=== PATIENT | female | born 1955 | race Caucasian/White ===

== ENCOUNTER 2023-02-14 09:44 | Outpatient (CLI) | payer MEDICARE, OTHER, SELFPAY ==
[2023-02-14 10:00] VITALS: BP 97/68; PULSE 77; RESP 18; TEMP 36.6; O2SAT 100
== END 2023-02-14 10:20 | disposition home or self-care (01) ==
LOC: INF 09:45
PROVIDERS: PCP Internal Medicine; Visit Provider Internal Medicine
DX: M81.0 Age-related osteoporosis without current pathological fracture (principal); Z76.89 Persons encountering health services in other specified circumstances
CPT/HCPCS: 96372; J0897

== ENCOUNTER → 2023-03-03 10:45 | Outpatient (POV) | payer MEDICARE, OTHER, SELFPAY ==
--- NOTE | 2023-03-03 11:04 | EXP.PAIN.OV ---
HPI Data of Consult Patient: new to practice Consult date: 03/03/23 Requesting Physician: Jessica Fitzgerald APRN Primary Care Provider: Jorge Hanson DO Consult Narrative Reason for consult: Neck pain, low back pain, knee pain History of present illness: Ms. Galloway is a 67 year old female who presents today as a new patient. She is a referral from Dr. Ureña's office. Today she rates her pain a 8 out of 10. Patient states her pain is at multiple locations including her neck with radiating symptoms into her arms and back with symptoms into her hips and legs. Patient does describe this as an aching, throbbing sensation with some numbness and tingling into her feet. Patient does state that she is establishing care with providers that she just recently moved from [place] to [place]. She states that while she was in [place] she did have a pain management provider and that they did injections that provided significant improvement. She states her last injection was in her low back however this 1 did not do as well. She does state today that her right hand and bilateral hips are causing her more pain currently. Patient does state the pain interferes with her ability to perform activities of daily living such as cooking and cleaning. She does state that she has also gotten gel injections in her knees that did provide significant improvement. Patient has been to see a neurosurgeon in the past and was told that she is a nonoperative candidate. Patient is prescribed gabapentin 400 mg 3 times a day. Patient denies any side effects from this medication. Patient does have a history of seizure disorder and colitis. Her Negro has been reviewed and is appropriate. CC: Jessica Fitzgerald APRN [facility] Disclaimer: The information contained in this section may have been updated after the patient was seen, as this information can be updated by other users. Medical History (Updated 03/03/23 @ 12:13 by Jessica Fitzgerald APRN) Colitis HLD (hyperlipidemia) Osteoporosis Seizure disorder Surgical History H/O: hysterectomy Hx of cataract surgery Hx of left knee surgery Family History (Updated 03/03/23 @ 11:55 by Margoth Hendrickson RN) Other CHF (congestive heart failure) Cancer Social History (Updated 02/14/23 @ 10:49 by Lawson Dumas, RN) Smoking Status: Never smoker alcohol intake: current substance use type: denies use current occupational status: retired Travel in the last 8 weeks: None Review of Systems Review of Systems Review of systems:: pertinent systems reviewed and negative unless documented below Review of systems (narrative): Review of Systems: General: No recent weight changes, no fever, no sleep disturbances Respiratory: No cough, no shortness of air, no recurring pulmonary infections Cardiovascular/peripheral vascular: No chest pain, no palpitations, no edema, no shortness of breath Gastrointestinal: No new onset incontinence, normal bowel movements reported Genitourinary: No new onset incontinence Musculoskeletal: Neck pain, arm pain, low back pain, leg pain, knee pain, hip pain Psychiatric: [Normal mood/affect] Neurological: [Denies weakness in extremities], [denies balance issues] Meds Home Medications and Allergies Home Medications Medication Instructions Recorded Confirmed Type budesonide 3 mg 9 mg PO DAILY ibs 02/09/23 03/03/23 History capsule,delayed,extended release denosumab 60 mg/mL subcutaneous 60 mg SQ [id number] osteoporosis 02/09/23 03/03/23 History syringe (Prolia) gabapentin 400 mg capsule 400 mg PO TID nerve pain 02/09/23 03/03/23 History levetiracetam 500 mg tablet 1,000 mg PO DAILY seizures 02/09/23 03/03/23 History rosuvastatin 20 mg tablet 20 mg PO DAILY High Cholesterol 02/09/23 03/03/23 History trazodone 50 mg tablet 50 mg PO HS Insomnia 02/09/23 03/03/23 History New Prescriptions to Start Prescriptions: Allergies All
[2023-03-03 11:53] VITALS: BP 149/59; PULSE 74; RESP 18; O2SAT 99; BMI 19.5
== END ==
PROVIDERS: PCP Internal Medicine; Visit Provider Nurse Practitioner Family
DX: M54.12 Radiculopathy, cervical region; M54.50 Low back pain, unspecified; G89.29 Other chronic pain; M54.16 Radiculopathy, lumbar region; M25.561 Pain in right knee; M25.562 Pain in left knee; M70.61 Trochanteric bursitis, right hip; M70.62 Trochanteric bursitis, left hip
CPT/HCPCS: 99202; G0463

== ENCOUNTER 2023-03-15 08:17 | Day surgery (SDC) | payer MEDICARE, OTHER, SELFPAY ==
[2023-03-15 08:25] VITALS: BP 87/58; PULSE 81; RESP 18; TEMP 36.2; O2SAT 98; BMI 18.6
[2023-03-15 08:45] VITALS: BP 95/46; PULSE 87; RESP 18; O2SAT 97
[2023-03-15 08:48] VITALS: BP 95/46; PULSE 87; RESP 18; O2SAT 97
[2023-03-15 08:50] VITALS: BP 96/69; PULSE 78; RESP 18; O2SAT 98
--- NOTE | 2023-03-15 09:07 | P.PCN_ITS ---
Procedure Date: 03/15/23 Time: 08:40 Anesthesiologist:: Lamin Villela CRNA Complications:: None Pre-procedure Diagnosis:: Bilateral trochanteric bursitis. Post-procedure Diagnosis:: Same. Indications for Procedure:: Patient is a very pleasant 67-year-old female comes our clinic today for bi lateral trochanteric bursa injections. Patient complains of lateral hip pain. She describes it hip pain as constant, dull, aching, sharp and stabbing at times. Patient is having difficulty lying on the left or right side. She rates her pain 7/10. Procedure Details:: Informed consent was obtained and the risks and benefits of the procedure were e xplained to the patient.~ The patient was taken to the procedure room and noninvasive monitors were placed including a noninvasive blood pressure cuff and pulse oximeter.~ The patient was placed prone on the procedure table. Both hips were cleansed using Betadine as a cleansing solution. C-arm fluoroscopy was used to view the right trochanteric bursa joint.~ The skin and subcutaneous tissues were anesthetized using lidocaine 1.5% and a 25-gauge needle.~ After this, a 22- gauge spinal needle was inserted under fluoroscopic guidance into the inferior aspect of the right trochanteric bursa.~ Omnipaque dye was injected and good spread was seen throughout the joint.~ After this, approximately 5 mL of bupivacaine, 0.25% and Depo-Medrol, 40 mg was incrementally injected into the right sacroiliac joint. We then moved to the left trochanteric bursa joint.~ The skin and subcutaneous tissues were anesthetized using lidocaine 1.5% and a 25-gauge needle.~ After this, a 22-gauge spinal needle was inserted under fluoroscopic guidance into the inferior aspect of the left trochanteric bursa joint.~ Omnipaque dye was injected and good spread was seen throughout the joint. After this, approximately 5 mL of bupivacaine, 0.25% and Depo-Medrol, 40 mg was incrementally injected into the left sacroiliac joint.~ The patient tolerated the procedure well with no complications. The patient was observed in the Pain Clinic and then was discharged home neurologically intact. Plan and Disposition:: Patient was discharged without incident.
== END 2023-03-15 08:50 | disposition home or self-care (01) ==
PROVIDERS: PCP Internal Medicine; Visit Provider Nurse Anesthetist, Certified Registered
DX: M70.61 Trochanteric bursitis, right hip (principal); M70.62 Trochanteric bursitis, left hip
CPT/HCPCS: 20610; 77002; J1040

== ENCOUNTER → 2023-03-29 09:23 | Outpatient (CLI) | payer MEDICARE, OTHER, SELFPAY ==
--- NOTE | 2023-03-29 09:28 | XR_ITS ---
FINAL REPORT CLINICAL HISTORY: left knee pain FINDINGS: Left knee Three views were obtained. There is no acute fracture or dislocation. There is moderate lateral compartment and mild medial compartment joint space narrowing. No soft tissue abnormality is identified. IMPRESSION: Degenerative changes as above. Reviewed, Interpreted and Dictated by Ronni Raman MD Transcribed by Magdalena Hickey Authenticated and [facility]
== END ==
PROVIDERS: PCP Internal Medicine; Visit Provider Orthopaedic Surgery
DX: M25.562 Pain in left knee (principal)
CPT/HCPCS: 73562

== ENCOUNTER → 2023-03-31 09:12 | Outpatient (POV) | payer MEDICARE, OTHER, SELFPAY ==
[2023-03-31 09:32] VITALS: BP 117/76; PULSE 73; RESP 18; O2SAT 97; BMI 18.6
--- NOTE | 2023-03-31 09:37 | A.OFFVIS_ITS ---
[facility] Pain Management SOAP Note Subjective:: Patient is a pleasant 67-year-old female who presents today for follow-up of bilateral trochanteric bursa injections on 03/15/2023. We are currently treating the patient for neck pain with cervical radiculopathy symptoms, low back pain with lumbar radiculopathy symptoms, knee pain, greater trochanteric bursitis and right hand/wrist pain. Today she rates her pain a 5 out of 10. Patient states that she has had at least 40% improvement following these injections and it is still providing additional relief. Patient does state that she noticed more improvement along the right side in comparison to the left however her left is typically the worst side. Patient states that the injection did help make her pain more tolerable. She does state that the compounding cream prescribed helps as well including for her right hand however when she is doing more activity or range of motion with this extremity she continues to have significant pain. Patient has prescribed gabapentin 400 mg 3 times daily from outside provider. She denies any side effects from this medication. Her Negro has been reviewed and is appropriate. Review of Systems: General: No recent weight changes, no fever, no sleep disturbances Respiratory: No cough, no shortness of air, no recurring pulmonary infections Cardiovascular/peripheral vascular: No chest pain, no palpitations, no edema, no shortness of breath Gastrointestinal: No new onset incontinence, normal bowel movements reported Genitourinary: No new onset incontinence Musculoskeletal: Right hand/wrist pain Psychiatric: [Normal mood/affect] Neurological: [Denies weakness in extremities], [denies balance issues] Objective:: Physical Exam: General: Alert and oriented x3, no acute distress, pleasant and cooperative Lungs: Respirations even and unlabored, symmetrical chest expansion Eyes: PERRL Musculoskeletal: Flexion and extension of lumbar [spine] somewhat guarded secondary to pain Neurological: Speech clear, no gross sensory deficit Assessment:: Neck pain with cervical radiculopathy symptoms, low back pain with lumbar radiculopathy symptoms, bilateral greater trochanteric bursitis, right hand/wrist pain Plan:: Patient continues to experience significant pain in her right hand and right wrist. I will send her referral to a hand specialist in [place]. Patient will return to clinic in 1 month for reevaluation of symptoms and plan of care. Patient has been instructed to contact the clinic with any concerns before the next appointment. Dr. Foss has reviewed this note and agrees with this plan of care. This note was dictated using voice recognition software and make contain errors or omissions. [facility] Disclaimer: The information contained in this section may have been updated after the patient was seen, as this information can be updated by other users. Medical History Colitis HLD (hyperlipidemia) Osteoporosis Seizure disorder Surgical History H/O: hysterectomy Hx of cataract surgery Hx of left knee surgery Family History Other CHF (congestive heart failure) Cancer Social History Smoking Status: Never smoker alcohol intake: current substance use type: denies use current occupational status: retired Travel in the last 8 weeks: None
== END ==
PROVIDERS: PCP Internal Medicine; Visit Provider Nurse Practitioner Family
DX: M54.12 Radiculopathy, cervical region (principal); M54.16 Radiculopathy, lumbar region; M70.61 Trochanteric bursitis, right hip; M70.62 Trochanteric bursitis, left hip; M79.641 Pain in right hand; M25.531 Pain in right wrist
CPT/HCPCS: 99212; G0463

== ENCOUNTER 2023-08-04 13:20 | Outpatient (CLI) | payer MEDICARE, OTHER, SELFPAY ==
--- NOTE | 2023-08-04 13:27 | MR_ITS ---
FINAL REPORT CLINICAL HISTORY: LOW BACK PAIN. BILATERAL HIP PAIN, NUMBNESS AND TINGLING. BILATEAL FEET TINGLING FINDINGS: Multiplanar MR imaging of the lumbar spine was performed without contrast. On the sagittal T2-weighted images, disc degeneration is seen at multiple levels. Mild leftward curvature is noted. The vertebral alignment is otherwise normal. There is no evidence of fracture. No bony mass is identified. The conus has an unremarkable appearance. T12-L1: A small right paracentral disc protrusion mildly indents the thecal sac. No significant canal stenosis or neural foraminal narrowing is seen. L1-2: An annular bulge is present. There is no significant canal stenosis or neural foraminal narrowing. L2-3: An annular bulge is present. There is no significant canal stenosis or neural foraminal narrowing. L3-4: An annular bulge is present. A small posterior midline annular tear is present. There is no significant canal stenosis or neural foraminal narrowing. L4-5: An annular bulge is present. There is bilateral facet arthropathy. Mild bilateral neural foraminal narrowing is seen. L5-S1: An annular bulge is present. There is no significant canal stenosis or neural foraminal narrowing. IMPRESSION: Multilevel degenerative disc disease and spondylosis as described. Small right paracentral T12-L1 disc protrusion. Posterior midline annular tear at L3-4. Authenticated and [facility]
--- NOTE | 2023-08-04 13:27 | MR_ITS ---
FINAL REPORT CLINICAL HISTORY: NECK PAIN FINDINGS: Multiplanar MR imaging of the cervical spine was performed without contrast. On the sagittal T2-weighted images, disc degeneration is seen throughout. There is no evidence of fracture. There is mild retrolisthesis of C4 in relation to C3 and C5. The cervical spinal cord has an unremarkable appearance without evidence of mass, edema or syrinx. No significant canal stenosis is identified. The cervicomedullary junction is normal. C2-3: There is no significant canal stenosis or neural foraminal narrowing. C3-4: Annular disc bulge with uncovertebral osteophytes. There is mild right neuroforaminal narrowing. C4-5: Disc osteophyte complex with left foraminal disc protrusion. There is mild right and severe left neuroforaminal narrowing. C5-6: Annular disc bulge with uncovertebral osteophytes. There is a small right paracentral disc protrusion. There is mild right neuroforaminal narrowing. C6-7: There is an annular disc bulge without significant canal stenosis or neural foraminal narrowing. C7-T1: There is no significant canal stenosis or neural foraminal narrowing. IMPRESSION: Multilevel degenerative change with severe left neuroforaminal narrowing at C4-5. Reviewed, Interpreted and Dictated by Zeyad Akbar III, MD Transcribed by April Soto Authenticated and [facility]
== END 2023-08-04 23:59 ==
LOC: RAD 13:22
PROVIDERS: PCP Family Medicine; Visit Provider Anesthesiology
DX: M54.16 Radiculopathy, lumbar region (principal); M54.12 Radiculopathy, cervical region
CPT/HCPCS: 72141; 72148; 76376

== ENCOUNTER 2023-12-05 11:26 | Outpatient (CLI) | payer MEDICARE, OTHER, SELFPAY ==
[2023-12-05 11:45] VITALS: BP 112/63; PULSE 64; RESP 18; O2SAT 100
[2023-12-05] MEDS: DENOSUMAB 60 MG/ML SYRINGE SQ (11:45)
== END 2023-12-05 11:55 | disposition home or self-care (01) ==
LOC: INF 11:28
PROVIDERS: PCP Family Medicine; Visit Provider Internal Medicine
DX: M81.0 Age-related osteoporosis without current pathological fracture (principal); Z79.620 Long term (current) use of immunosuppressive biologic
CPT/HCPCS: 96372; J0897

== ENCOUNTER 2024-01-18 14:29 | Outpatient (CLI) | payer MEDICARE, OTHER, SELFPAY ==
--- NOTE | 2024-01-18 14:35 | XR_ITS ---
FINAL REPORT TECHNIQUE: Bone densitometry calculations of the lumbar spine and left hip were obtained. CLINICAL HISTORY: SCREENING COMPARISON: None FINDINGS: Using L1-4, the bone mineral density of the spine is 0.695 g/cm2, corresponding to T-score of -3.2. Using the left hip, the bone mineral density of the femoral neck is 0.457 g/cm2, corresponding to a T-score of -4.0. NOTE: T-score: Standard deviation compared with peak bone mass of young adult mean. *Following the recommendations of the International Society of Bone Densitometry, classification of hip BMD is based on the lower of two T-scores; total hip or femoral neck. IMPRESSION: Osteoporosis: Lowest T-score is at or below -2.5. This patient's T-score meets the World Health Organization criteria for osteoporosis. Reviewed, Interpreted and Dictated by Zeyad Akbar III, MD Transcribed by Kari Riggins Authenticated and [facility]
--- NOTE | 2024-01-18 14:35 | MM_ITS ---
PROCEDURE INFORMATION: Exam: MG Bilateral Screening 3D Mammography Exam date and time: 01/18/2024 2:22 PM Age: 68 years old Clinical indication: Screening examination TECHNIQUE: Imaging protocol: Bilateral Screening tomosynthesis and 2D mammography including computer-aided detection (CAD) when performed. COMPARISON: No relevant prior studies available. FINDINGS: MAMMOGRAPHY: Breast composition: There are scattered areas of fibroglandular density. Mass: None. Architectural distortion: None. Calcifications: No suspicious calcifications. Asymmetric density: None. Skin thickening: None. Axillary adenopathy: None. IMPRESSION: No mammographic evidence of malignancy. Annual screening is recommended unless otherwise clinically indicated. ASSESSMENT: BI-RADS Category 1: Negative
== END 2024-01-18 23:59 | disposition home or self-care (01) ==
LOC: RAD 14:30
PROVIDERS: PCP Family Medicine; Visit Provider Family Medicine
DX: Z12.31 Encounter for screening mammogram for malignant neoplasm of breast (principal); M81.0 Age-related osteoporosis without current pathological fracture
CPT/HCPCS: 77063; 77067; 77080

== ENCOUNTER 2024-06-06 11:25 | Outpatient (CLI) | payer MEDICARE, OTHER, SELFPAY ==
[2024-06-06] MEDS: DENOSUMAB 60 MG/ML SYRINGE SUBCUT (11:38)
[2024-06-06 11:40] VITALS: BP 107/72; PULSE 72; RESP 17; O2SAT 100
== END 2024-06-06 11:55 | disposition home or self-care (01) ==
LOC: INF 11:27
PROVIDERS: PCP Family Medicine; Visit Provider Family Medicine
DX: M81.0 Age-related osteoporosis without current pathological fracture (principal)
CPT/HCPCS: 96372; J0897

== ENCOUNTER 2024-12-04 10:56 | Outpatient (CLI) | payer MEDICARE, OTHER, SELFPAY ==
--- OUTSIDE RECORDS SUMMARY | 2024-10-23 10:45 | XMS_ITS | Encounter Summary ---
Author Organization [facility] Address [address] [place] [address] Care Team Providers Care Orthopedic Physician Name Role Phone Artem Granados MD Primary Care Provider + Reason for Referral * Pain Management (Routine) - Authorized Specialty Diagnoses / Procedures Referred By Kayli t Referred To Contact Diagnoses Chronic pain syndrome Lumbar radiculopathy, chronic Cervical spine arthritis Procedures AK OFFICE/OUTPATIENT NEW MODERATE MDM 45 MINUTES Artme Granados MD [address] [place] [address] Phone: tel: fax: Dino Momin MD [id number] [address] Phone: tel: fax: Referral ID Status Reason Start Date Expiration Date Visits Requested Visits Authorized [id number] Authorized Specialty Services Required 10/23/2024 01/22/2026 1 1 Reason for Visit * Reason Comments Med Refill Referral Pain management doct or. Encounter Details Date Type Department Care Team (Late st Contact Info) Description 10/23/2024 10:45 AM EDT Office Visit [facility] [address] [place] [address] Artem Granados MD [address] [facility] [place] [address] Chronic pain syndrome (Primary Dx); Lumbar radiculopathy, chronic; Cervical spine arthritis Social History Tobacco Use Types Packs/Day Years Used Date Smoking Tobacco: Former Cigarettes 0.3 7.8 Q uit: 1989 Smokeless Tobacco: Never Tobacco Cessation:Counseling Given: Not Answered Comments:socially, off and on early adult Alcohol Use Standard Drinks/Week Comments Yes 3 (1 standard drink = 0.6 oz pure alcohol) occasional cocktails when eating out PHQ-2 Answer Date Recorded Patient Health Questionnaire-2 Score 0 10/23/2024 Comments Unknown Sex and Gender Information Value Date Recorded Sex Assigned at Female 10/16/2024 9:41 AM EDT Legal Sex Female 12:03 PM EST Gender Identity Not on file Sexual Orientation Straight 10/16/2024 9: 41 AM EDT documented as of this encounter Last Filed Vital Signs Vital Sign Reading Time Taken Comments Blood Pressure 94/60 10/23/2024 10:47 AM EDT Pulse 80 10/23/2024 10:47 AM EDT Temperature 36.5 C (97.7 F) 10/23/2024 10:47 AM EDT Respiratory Rate 18 10/23/2024 10:47 AM EDT Oxygen Saturation 99% 10/23/2024 10:47 AM EDT Inhaled Oxygen Concentration - - Weight 45.9 kg (101 lb 3.2 oz) 10/23/2024 10:47 AM EDT Height 149 cm (4' 10.66 ) 10/23/2024 10:47 AM ED T Body Mass Index 20.68 10/23/2024 10:47 AM EDT documented in this encounter Functional Status documented as of this encounter Progress Notes * Artem Granados MD - 10/23/2024 1:09 PM EDTAssociated Problem(s): Lumbar radiculopathy, chronic Will be referred to [facility] interventional pain management for repeat evaluation and consideration of further interventions. She will continue gabapentin 800 mg nightly. * Artem Granados MD - 10/23/2024 1:09 PM EDTAssociated Problem(s): Cervical spine arthritis Patient will be referred to [facility] interventional pain management for repeat evaluation * Artem Granados MD - 10/23/2024 10:45 AM EDT Chief Complaint Patient presents with Med Refill Referral Pain management doctor. Subjective Lori Galloway is a 69 y.o. who presents for issues related to her chronic pain. First she needs a refill on gabapentin which she uses for pain in the low back and hips related to lumbar degenerativedisc disease. Gabapentin used at night allows for better quality sleep due to pain reduction. Patient second concern is she would like to find an alternative pain management physician. When patient wa s residing in [place] her pain management physician, Dr. Flaherty, performed his injections in differentfashion and her current interventional pain management physician. Her current injections seem to bebecoming less effective. Patient believes at present she is receiving a single epidural steroid injection but review of available records from Dr. Flaherty indicates multilevel bilateral transforaminal epidural steroid injections will use which patient admits provided much better pain. Her current pain management physician has indicated that she does not feel that is necessary and patient would likean alternative provider although is understanding that this may not be the recommended treatment. Patient also has epidural steroid injections of the neck although it has been quite sometime possiblyas long as 3 years since last injections[address] Dr. Flaherty's notes do not describe him performing any of these procedures although the patient and her are adamant that she received injections from Dr. Flaherty in her neck as well. Available data within [facility] shows recent procedures include cervical epidural steroid injection in August, interlaminar epidural steroid injection in July, March 2024, August 2023. Patient's also provided information regarding her past injections with confirmation of timeline The following portions of the patient's history were reviewed and updated as appropriate: allergies, current medications, past family history, past medical history, past social history, past surgicalhistory, and problem list. Review of Systems Objective Vital Signs: BP 94/60 Pulse 80 Temp 97.7 ??F (36.5 ??C) Resp 18 Ht 149 cm (58.66 ) Wt 45.9 kg (101 lb 3.2 oz) SpO2 99% BMI 20.68 kg/m?? BMI is within normal parameters. No other follow-up for BMI required. Physical Exam Vitals reviewed. Constitutional: Appearance: Normal appearance. Neurological: Mental Status: She is alert. Result Review The following data was reviewed by: Artem Granados MD on 10/23/2024: Data reviewed : Qual Research Manager notes [facility] Mgmt. Office and Procedure note Assessment and Plan Diagnoses and all orders for this visit: 1. Chronic pain syndrome (Primary) - Ambulatory Referral to Pain Management 2. Lumbar radiculopathy, chronic Comments: Condition is stable. Continue nightly gabapentin. Reassess every 6 months Assessment & Plan: Will be referred to [facility] interventional pain management for repeat evaluation and consideration of further interventions. She will continue gabapentin 800 mg nightly. Orders: - gabapentin (NEURONTIN) 400 MG capsule; Take 2 capsules by mouth every night at bedtime. Dispense:180 capsule; Refill: 1 - Ambulatory Referral to Pain Management 3. Cervical spine arthritis Assessment & Plan: Patient will be referred to [facility] interventional pain management for repeat evaluation Orders: - Ambulatory Referral to Pain Management In addition to the above patient was also given copies of available notes from Dr. Flaherty I spent 30 minutes caring for Lori on this date of service. This time includes time spent by mann the following activities:reviewing tests, obtaining and/or reviewing a separately obtained history, performing a medically appropriate examination and/or evaluation , counseling and educating the p atient/family/caregiver, ordering medications, tests, or procedures, and documenting information inthe medical record Follow Up No follow-ups on file. Patient was given instructions and counseling regarding her condition or for health maintenance advice. Please see specific information pulled into the AVS if appropriate. documented in this encounter Plan of Treatment Upcoming Encounters Date Type Department Care Team (Late st Contact Info) Description 12/12/2024 10:00 AM EDT Office Visit [facility] [address] [facility] [address] [place] [address] Lawrence Shanks MD [address] [facility] [address] [place] [address] Scheduled Referrals Name Type Priority Associated Diagnoses Order Schedule Ambulatory Referral to Pain Management Outpatient Referral Routine Chronic pain syndrome Lumbar radiculopathy, chronic Cervical spine arthritis Ordered: 10/23/2024 documented as of this encounter Visit Diagnoses Diagnosis Chronic pain syndrome- Primary Lumbar radiculopathy, chronic Cervical spine arthritis Cervical spondylosis without myelopathy documented in this encounter Care Teams Orthopedic Physician Relationship Specialty Start Date End Date Artem Granados MD [address] [place] [address] PCP - General Family Medicine 06/10/23 12/02/24 documented as of this encounter
--- OUTSIDE RECORDS SUMMARY | 2024-11-27 10:00 | XMS_ITS | Encounter Summary ---
Author Organization Healthcare Address [address] [place] [address] Care Team Providers Care Wedding Consultant Name Role Phone Vikash Taylor MD Primary Care Provider [phone] Reason for Visit * Reason Comments New Patient Est care Care Gap Closure DEXA scan last last year at [facility], records requested; last mammogram [facility] last yr or the yr before, records requested; due to schedule Medicare AWV; postpone Covid vaccine; last colonoscopy [facility], records requested Encounter Details Date Type Department Care Team (Late st Contact Info) Description 11/27/2024 10:00 AM EDT Office Visit [facility] [address] [place] [address] Vikash Taylor MD [address] [place] [address] Primary insomnia (Primary Dx); Gastroesophageal reflux disease, unspecified whether esophagitis present; Mixed hyperlipidemia; Lumbar radiculopathy, chronic; Nonintractable epilepsy with complex partial seizures (CMS/HCC); Vitamin D deficiency Social History Tobacco Use Types Packs/Day Years Used Date Smoking Tobacco: Former Cigarettes 0.5 3 0 05/16/1987 - 05/16/1990 Passive Smoke Exposure: Never Smokeless Tobacco: Never Alcohol Use Standard Drinks/Week Comments Yes 4 (1 standard drink = 0.6 oz pur e alcohol) mostly when dining out PHQ-2 Answer Date Recorded Patient Health Questionnaire-2 Score 0 11/27/2024 PHQ-9 Answer Date Recorded Patient Health Questionnaire-9 Score 0 11/27/2024 Humiliation, Afraid, Rape, and Kick questionnair e Answer Date Recorded Within the last year, have y ou been afraid of your partner or ex-partner? No 11/24/2024 Within the last year, have y ou been humiliated or emotionally abused in other ways by your partner or ex-partner? No Within the last year, have y ou been kicked, hit, slapped, or otherwise physically hurt by your partner or ex-partner? No 11/24/2024 Within the last year, have y ou been raped or forced to have any kind of sexual activity by your partner or ex-partner? No 11/24/2024 AUDIT-C Answer Date Recorded Q1: How often do you have a drink containing alc ohol? 2-3 times a week 11/27/2024 Q2: How many drinks containi ng alcohol do you have on a typical day when you are drinking? 1 or 2 11/27/2024 Q3: How often do you have si x or more drinks on one occasion? Never 11/27/2024 Hunger Vital Sign Answer Date Recorded Within the past 12 months, y ou worried that your food would run out before you got the money to buy more. Never true 11/25/19 25 Within the past 12 months, t he food you bought just didn't last and you didn't have money to get more. Never true 11/24/2024 PRAPARE - Transportation Answer Date Re corded In the past 12 months, has l ack of transportation kept you from medical appointments or from getting medications? No 11/13 In the past 12 months, has l ack of transportation kept you from meetings, work, or from getting things needed for daily living? No 11/24/2024 Housing Stability Vital Sign Answer Jeovanny e Recorded In the last 12 months, was t here a time when you were not able to pay the mortgage or rent on time? No 11/24/2024 In the past 12 months, how m any times have you moved where you were living? 0 11/24/2024 At any time in the past 12 m [facility], were you homeless or living in a senior living (including now)? No 11/24/2024 Utilities Answer Date Recorded In the past 12 months has th e electric, [employer], oil, or water bulletn. threatened to shut off services in your home? No 11/24/2024 Comments No Sex and Gender Information Value Date Recorded Sex Assigned at Not on file Legal Sex Female 7:31 AM EDT Gender Identity Not on file Sexual Orientation Not on file documented as of this encounter Last Filed Vital Signs Vital Sign Reading Time Taken Comments Blood Pressure 97/61 11/27/2024 10:08 AM EDT Pulse 70 11/27/2024 10:08 AM EDT Temperature 36.6 C (97.8 F) 11/27/2024 10:08 AM EDT Respiratory Rate 14 11/27/2024 10:08 AM EDT Oxygen Saturation 99% 11/27/2024 10:08 AM EDT Inhaled Oxygen Concentration - - Weight 45.8 kg (101 lb) 11/27/2024 10:08 AM EDT Height 149.9 cm (4' 11 ) 11/27/2024 10:08 AM EDT Body Mass Index 20.4 11/27/2024 10:08 AM EDT documented in this encounter Functional Status * AUDIT-C Score Answer Date of Assessment Author 3 11/27/2024 10:14 AM EDT Vinita Cortes * Question Answer Date of Assessment Author Q1: How often do you have a drink containing alcohol? 2-3 times a week 11/27/2024 10:14 AM EDT Juan Manuel Penn Q2: How many drinks containing alcohol do you have on a typical day when you are drinking? 1 or 2 11/27/2024 10:14 AM EDT Juan Manuel Penn Q3: How often do you have six or more drinks on one occasion? Never 11/27/2024 10:14 AM EDT Juan Manuel Penn * Over the past 2 weeks, how often have you been bothered by any of the following problems? Question Answer Date of Assessment Author Little interest or pleasure in doing things Not at all 11/27/2024 10:17 AM EDT Juan Manuel Penn Feeling down, depressed, or hopeless Not at all 11/27/2024 10:17 AM EDT Juan Manuel Penn Patient Health Questionnaire-2 Score 0 11/27/2024 10:17 AM EDT Stella Penn * Question Answer Date of Assessment Author Trouble falling or staying asleep, or sleeping too much Not at all 11/27/2024 10:17 AM EDT Vinita Garland Feeling tired or having little energy Not at all 11/27/2024 10:17 AM EDT Juan Manuel Penn Poor appetite or overeating Not at all 11/27/2024 10 :17 AM EDT Vinita Penn Feeling bad about yourself - or that you are a failure or have let yourself or your family down Not at all 11/27/2024 10:17 AM EDT Juan Manuel Penn Trouble concentrating on things, such as reading the newspaper or watching television Not at all 11/27/2024 10:17 AM EDT Juan Manuel Penn Moving or speaking so slowly that other people could have noticed? Or the opposite - being so fidgety or restless that you have been moving around a lot more than usual. Not at all 11/27/2024 10:17 AM EDT Vinita Wade Thoughts that you would be better off or hurting yourself in some way Not at all 11/27/2024 10:17 AM EDT Adi Penna Haleigh Patient Health Questionnaire-9 Score 0 11/27/2024 10:17 AM EDT Stella Penn * Calculated C-SSRS Risk Score (Lifetime/Recent) Answer Date of Assessment Author No Risk Indicated 11/27/2024 10:29 AM EDT Vinita Wade * If you checked off any problems on this questionnaire so far, Question Answer Date of Assessment Author How difficult have these problems made it for you to do your work, take care of things at home, or get along with other people? Not difficult at all 11/27/2024 10:17 AM EDT Adi Penn * Question Answer Date of Assessment Author 1. Wish to be (Past 1 Month) No 11/27/2024 10:29 AM EDT Juan Manuel Penn 2. Non-Specific Active Suici bakari Thoughts (Past 1 Month) No 11/27/2024 10:29 AM EDT Vinita Penn 6. Suicidal Behavior (Lifetime) No 10:29 AM EDT Vinita Penn documented as of this encounter Miscellaneous Notes * Progress Notes - Vikash Taylor MD - 11/27/2024 10:00 AM EDT Subjective Lori Galloway HPI Ms. Galloway presents as a new patient today. She presents to discuss multiple different medical conditions. Patient has chronic lumbar radiculopathy and cervical spine arthritis seeing pain clinic. Was on gabapentin, which was causing over sedation. Did get switched to lyrica with quicker improvement Has low back pain and hip pain. Did recently get injections with pain clinic. Sees Dr. Wayne. Oversedated with gabapentin. Will take 1.5 hours to go to sleep and wakes up 2 hours past when she want to. Lyrica worked quicker but wore off 3 hours before she wanted it to. Has hyperlipidemia on rosuvastatin. Last lipid in 03/2024 was at goal. Has insomnia on trazodone. Has seizure disorder that has been stable with over 30 years of being seizure free. Currently controlled on Keppra. Prior labs 03/2024 showed elevated liver function tests. Past Medical History[1] Family History[2] Surgical History[3] Social History Socioeconomic History Marital status: Spouse name: Not on file Number of children: 2 Years of education: Not on file Highest education level: Not on file Occupational History Not on file Tobacco Use Smoking status: Former Current packs/day: 0.00 Average packs/day: 0.5 packs/day for 3.0 years (1.5 ttl pk-yrs) Types: Cigarettes Start date: 05/16/1987 Quit date: 05/16/1990 Years since quittin.5 Passive exposure: Never Smokeless tobacco: Never Vaping Use Vaping status: Never Used Substance and Sexual Activity Alcohol use: Yes Alcohol/week: 4.0 standard drinks of alcohol Types: 4 Standard drinks or equivalent per week Comment: mostly when dining out Drug use: Never Sexual activity: Not Currently Partners: Male control/protection: Post-menopausal Other Topics Concern Not on file Social History Narrative Not on file Social Drivers of Health Financial Resource Strain: Low Risk (05/31/2019) Received from [facility] Overall Financial Resource Strain (CARDIA) Difficulty of Paying Living Expenses: Not very hard Food Insecurity: No Food Insecurity (11/24/2024) Hunger Vital Sign Worried About Running Out of Food in the Last Year: Never true Ran Out of Food in the Last Year: Never true Transportation Needs: No Transportation Needs (11/24/2024) PRAPARE - Transportation Lack of Transportation (Medical): No Lack of Transportation (Non-Medical): No Physical Activity: Inactive (05/31/2019) Received from [facility] Exercise Vital Sign Days of Exercise per Week: 0 days Minutes of Exercise per Session: 0 min Stress: No Stress Concern Present (05/31/2019) Received from [facility] [place] [facility] [employer] [facility] - Occupational Stress Questionnaire Feeling of Stress : Not at all Social Connections: Unknown (05/31/2019) Received from [facility] Social Connection and Isolation Panel Frequency of Communication with Friends and Family: Twice a week Frequency of Social Gatherings with Friends and Family: Once a week Attends [employer] Services: Patient declined Active Member of Clubs or Organizations: No Attends Club or Organization Meetings: Never Marital Status: Intimate Partner Violence: Not At Risk (11/24/2024) Humiliation, Afraid, Rape, and Kick questionnaire Fear of Current or Ex-Partner: No Emotionally Abused: No Physically Abused: No Sexually Abused: No Housing Stability: Low Risk (11/24/2024) Housing Stability Vital Sign Unable to Pay for Housing in the Last Year: No Number of Times Moved in the Last Year: 0 Homeless in the Last Year: No Medications Ordered Prior to Encounter[4] Allergies[5] Health Maintenance Due Topic Date Due [facility]-Medicare Annual Wellness (AWV) Never done [facility]-Hepatitis C Screening Never done [id number] Vaccine (1) Never done [facility]-Colorectal Cancer Screening Never done [facility]-RSV Vaccine: 60+ Years or (1 - Risk 60-74 years 1-dose series) Never done [facility]-Pneumococcal Vaccine: 50+ Years (2 of 2 - PPSV23) 12/05/2021 [facility]-Bone Density Scan 12/23/2022 [facility]-Breast Cancer Screening 12/17/2023 [facility]-Influenza Vaccine (1) 01/14/2025 All medications have been reviewed today. The following portions of the patient's chart were reviewed in this encounter and updated as appropriate: past medical history, surgical history, family history, tobacco history, allergies, and medications Over the last 2 weeks, how often have you been bothered by any of the following problems? Little interest or pleasure in doing things: Not at all Feeling down, depressed, or hopeless: Not at all Trouble falling or staying asleep, or sleeping too much: Not at all Feeling tired or having little energy: Not at all Poor appetite or overeating: Not at all Feeling bad about yourself - or that you are a failure or have let yourself or your family down: Not at all Trouble concentrating on things, such as reading the newspaper or watching television: Not at all Moving or speaking so slowly that other people could have noticed? Or the opposite - being so fidgety or restless that you have been moving around a lot more than usual.: Not at all Thoughts that you would be better off or hurting yourself in some way: Not at all Patient Health Questionnaire-9 Score: 0 Review of Systems Constitutional: Negative for fatigue and fever. Respiratory: Negative for cough and shortness of breath. Cardiovascular: Negative for chest pain. Neurological: Negative for headaches. Psychiatric/Behavioral: Positive for sleep disturbance. Objective Vitals: 11/27/24 1008 BP: 97/61 Pulse: 70 Resp: 14 Temp: 36.6 ??C (97.8 ??F) SpO2: 99% Physical Exam Constitutional: Appearance: Normal appearance. She is not ill-appearing. HENT: Head: Normocephalic and atraumatic. Cardiovascular: Rate and Rhythm: Normal rate and regular rhythm. Heart sounds: Normal heart sounds. No murmur heard. Pulmonary: Effort: Pulmonary effort is normal. No respiratory distress. Breath sounds: Normal breath sounds. No wheezing or rhonchi. Neurological: General: No focal deficit present. Mental Status: She is alert. Mental status is at baseline. Psychiatric: Mood and Affect: Mood normal. Behavior: Behavior normal. Assessment/Plan Problem List Items Addressed This Visit Primary insomnia - Primary Relevant Orders CBC and Differential Gastroesophageal reflux disease Relevant Medications dicyclomine (Bentyl) 10 MG capsule omeprazole (PriLOSEC) [address] capsule Other Relevant Orders Comprehensive Metabolic Panel, Plasma CBC and Differential Mixed hyperlipidemia Relevant Medications rosuvastatin (Crestor) 20 MG tablet Other Relevant Orders Comprehensive Metabolic Panel, Plasma Lumbar radiculopathy, chronic Nonintractable epilepsy with complex partial seizures (CMS/HCC) Relevant Medications gabapentin (Neurontin) 400 MG capsule levETIRAcetam (Keppra) 500 MG tablet pregabalin (Lyrica) 50 MG capsule Vitamin D deficiency Relevant Orders Vitamin D 25 Hydroxy Vikash Taylor MD Will back off gabapentin to the 400 mg at night for 3 days and if she's still noting prolonged sedation will move dosing in by 30 minutes from when she normally takes it weekly until she feels she's waking up at the desired time. Note to patient: The Century Cures Act makes medical notes like these available to patients inthe interest of transparency. However, be advised this is a medical document. It is intended as peer to peer communication. It is written in medical language and may contain abbreviations or verbiagethat are unfamiliar. It may appear blunt or direct. Medical documents are intended to carry relevant information, facts as evident, and the clinical opinion of the practitioner. [1] Past Medical History: Diagnosis Date Allergic 1989 Arthritis 2016 Cataract 2014 GERD (gastroesophageal reflux disease) 2015 Hyperlipidemia 1988 Inflammatory bowel disease 2015 Peptic ulceration 1974 Scoliosis 2012 Seizures (CMS/HCC) 1961 Varicella 1960 Visual impairment 1960 [2] Family History Problem Relation Name Age of Onset Hyperlipidemia Mother Odette Depression Mother Odette 30 - 39 Arthritis Father Leo 50 - 59 Heart failure Father Leo Osteoporosis Father Leo Hyperlipidemia Father Leo Arthritis Sister Kate 10 - 19 Vision loss Sister Kate 70 - 79 Autoimmune disease Sister Kate 10 - 19 Diabetes Sister Barbara 40 - 49 Obesity Sister Barbara No Known Problems Sister Antonia No Known Problems Maternal Grandmother No Known Problems Maternal Grandfather Osteoporosis Paternal Grandmother No Known Problems Paternal Grandfather Hyperlipidemia Daughter Lianna Hyperlipidemia Son [3] Past Surgical History: Procedure Laterality Date CATARACT EXTRACTION Bilateral 2020 COLONOSCOPY DILATION AND CURETTAGE OF UTERUS HYSTERECTOMY 1995 KNEE ARTHROSCOPY Left TONSILLECTOMY Bilateral 1959 [4] Current Outpatient Medications on File Prior to Visit Medication Sig Dispense Refill denosumab (Prolia) 60 MG/ML injection Inject 1 mL under the skin every 6 months. Diclofenac Sodium (Pennsaid) 2 % solution Apply topically as needed. dicyclomine (Bentyl) 10 MG capsule Take 1 capsule by mouth as needed. levETIRAcetam (Keppra) 500 MG tablet Take 1 tablet by mouth twice a day. omeprazole (PriLOSEC) [address] capsule Take 1 capsule by mouth 2 times a day. pregabalin (Lyrica) 50 MG capsule Take 2 capsules by mouth nightly. Procto-Med HC 2.5 % rectal cream Insert 1 Application into the rectum as needed. rosuvastatin (Crestor) 20 MG tablet Take 1 tablet by mouth nightly. traZODone (Desyrel) 50 MG tablet Take 1-2 tablets by mouth at night as needed for sleep. gabapentin (Neurontin) 400 MG capsule Take 2 capsules by mouth 1 time each day. (Patient not taking: Reported on 11/27/2024) No current facility-administered medications on file prior to visit. [5] Allergies Allergen Reactions Metronidazole Hives and Rash Vaginal cream documented in this encounter Plan of Treatment Upcoming Encounters Date Type Department Care Team (Late st Contact Info) Description 12/18/2024 12:20 PM EDT Office Visit [facility] [place] [address] Vikash Taylor MD [address] [place] [address] 01/18/2025 10:00 AM EDT Office Visit [facility] [address], [address] [place] [address] Karen Pearce PA [address] [place] [address] documented as of this encounter Procedures Procedure Name Priority Date/Time Associated Diagnosis Comments VITAMIN D 25 HYDROXY Routine 11/27/2024 11:51 AM EDT Vitamin D deficiency CBC WITH AUTO DIFFERENTIAL Routine 11/27/2024 11:51 AM EDT Primary insomnia Gastroesophageal reflux disease, unspecified whether esophagitis present LIPID PROFILE, PLASMA Routine 11/27/2024 11:51 AM EDT Mixed hyperlipidemia COMPREHENSIVE METABOLIC PANEL, PLASMA Routine 11/27/2024 11:51 AM EDT Gastroesophageal reflux disease, unspecified whether esophagitis present Mixed hyperlipidemia documented in this encounter Results * Lipid Profile, Plasma (11/27/2024 11:51 AM EDT) Cholesterol, Plasma 182 <200 mg/dL 11/27/2024 6:24 PM EDT [facility] Comment: Cholesterol Reference Range (age >17 years): Desirable <200 mg/dL Borderline 200 to 239 mg/dL Undesirable >239 mg/dL HDL 84 >=50 mg/dL 11/27/2024 6:24 PM EDT [facility] Comment: HDL Cholesterol Reference Ranges (age >17 years): Female, acceptable > or = 50 mg/dL Male, acceptable > or = 40 mg/dL Triglycerides, Plasma 85 <150 mg/dL 11/27/2024 6:24 PM EDT [facility] Comment: Triglyceride Reference Range (age >17 years): Desirable: <150 mg/dL Borderline high: 150 to 199 mg/dL High: 200 to 499 mg/dL Very high: >499 mg/dL Increased risk of pancreatitis: >1000 mg/dL Cholesterol/HDL Ratio 2 11/27/2024 6:24 PM EDT [facility] LDL, Calculated 83 <100 mg/dL 6:24 PM EDT [facility] Comment: LDL Cholesterol Reference Range (age >17 years): Optimal: <100 mg/dL Near or above optimal: 100 - 129 mg/dL Borderline high: 130 - 159 mg/dL High: 160 - 189 mg/dL Very high: >189 mg/dL LDL Cholesterol Reference Range (age <18 years): Desirable: <110 mg/dL Borderline: 110 - 129 mg/dL Undesirable: >130 mg/dL LDL Cholesterol is calculated using the Vazquez/NIH equation. Fasting greater than or equal to 12 hours? Yes 11/27/2024 6:24 PM EDT [facility] Blood Venous blood specimen / Unknown Venipuncture / Unknown 11/27/2024 11:51 AM EDT 11/27/2024 11:51 AM EDT us Vikash Taylor MD LAB BLOOD ORDERABLES Final Res ult [facility] [address] [place] [address] * Vitamin D 25 Hydroxy (11/27/2024 11:51 AM EDT) Vitamin D 25 Hydroxy 34.7 20.0 - 80.0 ng/mL 11/27/2024 6:59 PM EDT [facility] Blood Venous blood specimen / Unknown Venipuncture / Unknown 11/27/2024 11:51 AM EDT 11/27/2024 11:51 AM EDT Narrative [facility] - 11/27/2024 6:59 PM EDT Testing performed on [employer], standardized against NIST SRM 2972. When testing samples from patients whose predominant form of vitamin D is vitamin D2, such as patients receiving vitamin D2 supplementation, results that are subtherapeutic should be confirmed with another method, such as LC-MS/MS, before being used for patient management. Vitamin D, 25-Hydroxy reference range, age 18 years and up: Deficiency: <12 ng/mL Insufficiency: 12 to 19 ng/mL Sufficiency: 20 to 80 ng/mL Possible toxicity: >100 ng/mL us Vikash Taylor MD LAB BLOOD ORDERABLES Final Res ult [facility] [address] [place] [address] * (ABNORMAL) CBC and Differential (11/27/2024 11:51 AM EDT) WBC Count 8.91 3.70 - 10.30 10*3/uL LAB HEMATOLOGY METHOD 11/27/2024 6:12 PM EDT [facility] RBC Count 4.60 3.90 - 5.20 10*6/uL LAB HEMATOLOGY METHOD 11/27/2024 6:12 PM EDT [facility] HGB 13.8 11.2 - 15.7 g/dL LAB HEMATOLOGY METHOD 11/27/2024 6:12 PM EDT [facility] HCT 44.3 34.0 - 45.0 % LAB HEMATOLOGY METHOD 11/27/2024 6:12 PM EDT [facility] Platelet Count 343 155 - 369 10*3/uL LAB HEMATOLOGY METHOD 11/27/2024 6:12 PM EDT [facility] MCV 96 79 - 98 fL LAB HEMATOLOGY METHOD 11/27/2024 6:12 PM EDT [facility] MCH 30.0 26.0 - 32.0 pg LAB HEMATOLOGY METHOD 11/27/2024 6:12 PM EDT [facility] MCHC 31.2 30.7 - 35.5 g/dL LAB HEMATOLOGY METHOD 11/27/2024 6:12 PM EDT [facility] RDW 14.6(H) 11.5 - 14.5 % LAB HEMATOLOGY METHOD 11/27/2024 6:12 PM EDT [facility] MPV 10.4 8.8 - 12.5 fL LAB HEMATOLOGY METHOD 11/27/2024 6:12 PM EDT [facility] nRBC 0.0 <=0.0 per 100 WBCs LAB HEMATOLOGY METHOD 11/27/2024 6:12 PM EDT [facility] Differential Type Automated LAB HEMATOLOGY METHOD 11/27/2024 6:12 PM EDT [facility] Neutrophils % 58 % LAB HEMATOLOGY METHOD 11/27/2024 6:12 PM EDT [facility] Lymphocytes % 28 % LAB HEMATOLOGY METHOD 11/27/2024 6:12 PM EDT [facility] Monocytes % 11 % LAB HEMATOLOGY METHOD 11/27/2024 6:12 PM EDT [facility] Eosinophils % 1 % LAB HEMATOLOGY METHOD 11/27/2024 6:12 PM EDT [facility] Basophils % 1 % LAB HEMATOLOGY METHOD 11/27/2024 6:12 PM EDT [facility] Immature Granulocytes % 1 % LAB HEMATOLOGY METHOD 11/27/2024 6:12 PM EDT [facility] Neutrophils Absolute 5.21 1.60 - 6.10 10*3/uL LAB HEMATOLOGY METHOD 11/27/2024 6:12 PM EDT [facility] Lymphocytes Absolute 2.45 1.20 - 3.90 10*3/uL LAB HEMATOLOGY METHOD 11/27/2024 6:12 PM EDT [facility] Monocytes Absolute 0.97(H) 0.30 - 0.90 10*3/uL LAB HEMATOLOGY METHOD 11/27/2024 6:12 PM EDT [facility] Eosinophils Absolute 0.10 0.00 - 0.50 10*3/uL LAB HEMATOLOGY METHOD 11/27/2024 6:12 PM EDT [facility] Basophils Absolute 0.09 0.00 - 0.10 10*3/uL LAB HEMATOLOGY METHOD 11/27/2024 6:12 PM EDT [facility] Immature Granulocytes Absolute 0.09(H) 0.00 - 0.06 10*3/uL LAB HEMATOLOGY METHOD 11/27/2024 6:12 PM EDT [facility] Blood Venous blood specimen / Unknown Venipuncture / Unknown 11/27/2024 11:51 AM EDT 11/27/2024 11:51 AM EDT Narrative [facility] - 11/27/2024 6:12 PM EDT Therapeutic decision making should be based on absolute values, rather than percentages. us Vikash Taylor MD LAB BLOOD ORDERABLES Final Res ult [facility] [address] [place] [address] * Comprehensive Metabolic Panel, Plasma (11/27/2024 11:51 AM EDT) [facility] Glucose, Plasma 77 74 - 99 mg/dL 11/27/2024 6:24 PM EDT [facility] BUN, Plasma 16 8 - 23 mg/dL 11/27/2024 6:24 PM EDT [facility] Creatinine, Plasma 0.72 0.60 - 1.10 mg/dL 11/27/2024 6:24 PM EDT [facility] BUN/Creatinine Ratio 22 11/27/2024 6:24 PM EDT [facility] Sodium, Plasma 143 136 - 145 mmol/L 11/27/2024 6:24 PM EDT [facility] Potassium, Plasma 3.6 3.6 - 4.9 mmol/L 11/27/2024 6:24 PM EDT [facility] Chloride, Plasma 107 97 - 107 mmol/L 11/27/2024 6:24 PM EDT [facility] CO2, Plasma 24 22 - 29 mmol/L 11/27/2024 6:24 PM EDT [facility] Anion Gap 12 6 - 16 mmol/L 11/27/2024 6:24 PM EDT [facility] Total Calcium, Plasma 8.9 8.9 - 10.2 mg/dL 11/27/2024 6:24 PM EDT [facility] Total Protein 6.8 6.3 - 7.9 g/dL 11/27/2024 6:24 PM EDT [facility] Albumin, Plasma 4.4 3.5 - 5.2 g/dL 11/27/2024 6:24 PM EDT [facility] AST, Plasma 26 10 - 35 U/L 11/27/2024 6:24 PM EDT [facility] ALT, Plasma 24 10 - 35 U/L 11/27/2024 6:24 PM EDT [facility] Alkaline Phosphatase, Plasma 55 46 - 142 U/L 11/27/2024 6:24 PM EDT [facility] Total Bilirubin, Plasma 0.6 0.2 - 1.1 mg/dL 11/27/2024 6:24 PM EDT [facility] eGFRcr 90.6 mL/min/1.7 3m*2 11/27/2024 6:24 PM EDT [facility] Comment:Reported eGFRcr in m L/min/1.73m2 is based the CKD-EPI 2020 equation that does not use a race coefficient. Blood Venous blood specimen / Unknown Venipuncture / Unknown 11/27/2024 11:51 AM EDT 11/27/2024 11:51 AM EDT us Vikash Taylor MD LAB BLOOD ORDERABLES Final Res ult [facility] [address] [place] [address] documented in this encounter Visit Diagnoses Diagnosis Primary insomnia- Primary Persistent disorder of initiating or maintaining sleep Gastroesophageal reflux disease, unspecified whether esophagitis present Mixed hyperlipidemia Lumbar radiculopathy, chronic Nonintractable epilepsy with complex partial seizures (CMS/HCC) Vitamin D deficiency documented in this encounter Additional Health Concerns Assessment Noted Time PHQ-9 Depression Total Score: 0 11/28/19 10:17 AM EDT A fall risk assessment has been complete d for the patient 11/27/2024 10:17 AM EDT A Body Mass Index follow-up plan has been documented for the patient 11/27/2024 11:49 AM EDT documented as of this encounter Care Teams Wedding Consultant Relationship Specialty Start Date End Date Vikash Taylor MD [address] [place] [id number] PCP - General Family Medicine 11/27/24 documented as of this encounter
--- OUTSIDE RECORDS SUMMARY | 2024-12-04 11:02 | XMS_ITS | Encounter Summary ---
Author Organization [facility] Address [address] [place] [address] Care Team Providers Care Accounting Specialist Name Role Phone Artem Granados MD Primary Care Provider + Reason for Visit * Reason Comments Med Refill Encounter Details Date Type Department Care Team (Late Contact Info) Description 10/18/2024 Refill [facility] [address] [place] [address] Artem Granados MD [address] [place] [address] Lumbar radiculopathy, chronic Social History Tobacco Use Types Packs/Day Years Used Date Smoking Tobacco: Former Cigarettes 0.3 6.9 Smokeless Tobacco: Never Comments:socially, off and o n early adult Alcohol Use Standard Drinks/Week Comments [...] AM EDT documented as of this encounter Functional Status documented as of this encounter Plan of Treatment Upcoming Encounters Date Type Department Care Team (Late Contact Info) Description 12/12/2024 10:00 AM EDT Office Visit [facility] [address] [place], [place] [phone] Lawrence Shanks MD [address] [facility] [address] [place] [address] documented as of this encounter Visit Diagnoses Diagnosis Lumbar radiculopathy, chronic documented in this encounter Care Teams Accounting Specialist Relationship Specialty Start Date End Date Artem Granados MD [address] [place] [address] PCP - General Family Medicine 06/10/23 12/02/24 documented as of this encounter
--- OUTSIDE RECORDS SUMMARY | 2024-12-04 11:02 | XMS_ITS | Encounter Summary ---
Author Organization [facility] Address [address] [place] [address] Care Team Providers Care Manager Payment Name Role Phone Artem Granados MD Primary Care Provider + Reason for Visit * Reason Comments Med Refill Encounter Details Date Type Department Care Team (Late st Contact Info) Description 10/06/2024 Refill [facility] [address] [place] [address] Artem Granados MD [address] [place], [place] [id number] Chronic insomnia Social History Tobacco Use Types Packs/Day Years Used Date Smoking Tobacco: Former Cigarettes 0.3 6.9 Smokeless Tobacco: Never Comments:socially, off and o n early adult Alcohol Use Standard Drinks/Week Comments Yes 3 (1 standard drink = 0.6 oz pure alcohol) occasional cocktails when eating out PHQ-2 Answer Date Recorded Retired PHQ-9: Brief Depression Severity Measure Score 0 06/10/2023 Comments Unknown Sex and Gender Information Value Date Recorded Sex Assigned at Female 10/16/2024 9:41 AM EDT Legal Sex Female 12:03 PM EST Gender Identity Not on file Sexual Orientation Straight 10/16/2024 9: 41 AM EDT documented as of this encounter Plan of Treatment Upcoming Encounters Date Type Department Care Team (Late st Contact Info) Description 12/12/2024 10:00 AM EDT Office Visit [facility] [address] [place], [place] [phone] Lawrence Shanks MD [address] [facility] [address] [place] [address] documented as of this encounter Visit Diagnoses Diagnosis Chronic insomnia Insomnia, unspecified documented in this encounter Care Teams Manager Payment Relationship Specialty Start Date End Date Artem Granados MD [address] [facility] [place] [address] PCP - General Family Medicine 06/10/23 12/02/24 documented as of this encounter
--- OUTSIDE RECORDS SUMMARY | 2024-12-04 11:02 | XMS_ITS | Encounter Summary ---
Author Organization [facility] Address [address] [place] [address] Care Team Providers Care Motor Home Electrical Foreman Name Role Phone Artem Granados MD Primary Care Provider + Encounter Details Date Type Department Care Team (Latest Contact Info) Description 10/23/2024 Travel Social History Tobacco Use Types Packs/Day Years Used Date Smoking Tobacco: Former Cigarettes 0.3 7.8 Q uit: 1989 Smokeless Tobacco: Never Comments:socially, off and o [...] Description 12/12/2024 10:00 AM EDT Office Visit [facility] [address] [place] [phone] Lawrence Shanks MD [address] [place] [phone] documented as of this encounter Visit Diagnoses Not on filedocumented in this encounter Care Teams Motor Home Electrical Foreman Relationship Specialty Start Date End Date Artem Granados MD [address] [place] [address] [place] [address] PCP - General Family Medicine 06/10/23 12/02/24 documented as of this encounter
--- OUTSIDE RECORDS SUMMARY | 2024-12-04 11:02 | XMS_ITS | Encounter Summary ---
Author Organization [facility] Address [address] [place] [address] Care Team Providers Care Laborer Cutting Tool Name Role Phone Artem Granados MD Primary Care Provider + Reason for Visit * Reason Comments Med Refill Encounter Details Date Type Department Care Team (Late Contact Info) Description 11/21/2024 Refill [facility] [address] [place] [address] Artem Granados MD [address] [place] [address] Chronic insomnia Social History Tobacco Use Types [...] Description 12/12/2024 10:00 AM EDT Office Visit [facility]ICINE [address] [place], [place] [phone] Lawrence Shanks MD [address] [facility] [address] [place] [address] documented as of this encounter Visit Diagnoses Diagnosis Chronic insomnia Insomnia, unspecified documented in this encounter Care Teams Laborer Cutting Tool Relationship Specialty Start Date End Date Artem Granados MD [address] [facility] [place] [address] PCP - General Family Medicine 06/10/23 12/02/24 documented as of this encounter
--- OUTSIDE RECORDS SUMMARY | 2024-12-04 11:02 | XMS_ITS | Data Portability ---
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 Radiographs show moderately advanced DJD on the right thumb CMCJ and similar though milder findings on the left thumb CMCJ. We discussed natural history of this condition including that it is very common, that pain sometimes subsides over time, and that treatment of the condition depends upon patient level of discomfort. We discussed early treatment options including splinting, rest, use of oral or topical NSAIDs, and exercises. We also discussed more invasive options including steroid injections and surgical options. For today she elected to proceed with a right thumb CMCJ injection which she tolerated well. Use as tolerated and follow-up as needed for repeat injections or to discuss surgical management. [email or web address] Not available 08/31/2021 02:05:08 03/29/2022 03/29/2022 A 66 year old female patient with severe arthritis of the right wrist c/o significant pain at the R CMCJ. She experiences difficulty performing activities of daily living. The risks, details, and overall relief expectations about the injections were mentioned to her. For today, she opted to receive a R CMCJ injection which she tolerated well. She will monitor the pain at the ulnar aspect of the L thumb, and will call if she has any questions or concerns. In addition she appears to have sustained a low-grade injury to the left thumb MPJ. I counseled her that since her thumb is stable to exam and is slowly improving with splinting I would recommend continued splinting. Followup if these symptoms persist for consideration for MRI. Follow up as needed [email or web address] Not available 06/10/2023 07:20:25 10/13/2022 10/13/2022 A 67 year old male patient referred by presents with advanced arthritis of the right thumb CMCJ. 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 Last steroid injection into the right CMCJ done on 03-29-2022, which provided her with at least six months of relief. She does state that her symptoms progressively worsened within the last month. We discussed natural history of this condition including that it is very common, that pain sometimes subsides over time, and that treatment of the condition depends upon patient level of discomfort. We discussed early treatment options including splinting, rest, use of oral or topical NSAIDs, and exercises. We also discussed more invasive options including steroid injections and surgical options. For today, she opted to receive a steroid injections into the right thumb CMCJ, which she tolerated well. Follow up as needed. [email or web address] Not available 10/13/2022 11:42:11 Plan of Treatment Reminders Order Date Submit Date Provider Last Modified By Organization Details Last Modified Time Details Appointments None recorded. Lab None recorded. Referral None recorded. Procedures None recorded. Surgeries None recorded. Imaging XR, wrist 2021 022 In-House Results, For Internal Use Only, Do Not Delete/merge, [id number] 12:59:04 Medication Orders Kenalog 40 mg/mL suspension for injection 2022 023 [email or web address] Not available 3 16:45:37 Patient TargetsNo targets recorded. Patient InstructionsNo instructions recorded. Reason for Referral None Reported. Results Created Date Observation Date Name Description Value Unit Range Abnormal Flag Note LastModifiedBy Organization Detail LastModifiedTime 08/27/19 22 XR, wrist No observ ation record ed. [email or web address] In-House Results For Internal Use Only, Do Not Delete/merge, [id number] 08/26/2021 12:51:30 Result Notes None recorded. 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 Procedures Surgical History Date Name Laterality Status Provider Name and Address Organization Details Recorded Time 10/14/19 23 Joy completed [facility], [facility] 10/13/2022 11:08:25 03/29/20 22 Joy completed [facility], [facility] 03/29/2022 12:51:50 08/27/19 22 Joy completed Shahla Friedman MD [facility] [address] [facility], [place], [address], [facility], [facility] 08/26/2021 12:51:56 05/16/19 cataract surgery completed [facility], [facility] 08/26/2021 12:55:08 tonsillectomy completed [facility], [facility] 08/26/2021 12:13:04 Hysterectomy completed [facility], [facility] 08/26/2021 12:13:09 ligation of bilateral fallopian tubes completed [facility], [facility] 08/26/2021 12:13:17 Imaging Results None recorded. Procedure Notes None recorded. Medical Equipment None Reported. Allergies Allergen ID Allergen Name Allergen Category Reaction Reaction Severity Criticality Documentation Date Start Date Code Code System Note Provider Name and Address Organization Details Recorded Time 11591 Flagyl medicatio n Not available Not available Not available 08/26/2021 6 RxNorm [facility], [facility] 12:06:00 Medications Name Sig Start Date Stop Date Status Note LastModified by Organization Details LastModified Time amoxicillin 500 mg capsule TAKE ONE CAPSULE BY MOUTH THREE TIMES DAILY UNTIL FINISHED 10/13 completed Not Available Not Available Not Available trazodone 50 mg tablet TAKE 1 TO 2 TABLETS BY MOUTH AT BEDTIME NEEDED FOR SLEEP active Not Available Not Available No t Available levetiracet am 500 mg tablet TAKE 1 TABLET BY MOUTH TWICE DAILY active Not Available Not Available No t Available ondansetron HCl 4 mg tablet TAKE 1 TABLET BY MOUTH EVERY 6 HOURS NEEDED FOR NAUSEA active Not Available Not Available No t Available gabapentin 400 mg capsule TAKE 1 CAPSULE BY MOUTH THREE TIMES DAILY active Not Available Not Available No t Available acetaminoph en 300 mg-codeine 30 mg tablet TAKE 1 TABLET BY MOUTH EVERY 6 TO 8 HOURS NEEDED FOR PAIN 03/29 completed Not Available Not Available Not Available ketorolac 0.5 % eye drops INSTILL 1 DROP INTO LEFT EYE 4 TIMES DAILY. START DAY OF SURGERY 03/29 completed Not Available Not Available Not Available Kenalog 40 mg/mL suspension for injection Take 40 mg by injection route. 2022 active Not Available Not Available Not Avai lable oxycodone-a cetaminophe n 5 mg-325 mg tablet 10/13 completed Not Available Not Available Not Available prednisolon e acetate 1 % eye drops,suspe nsion INSTILL 1 DROP IN OPERATIVE EYE 4 TIMES DAILY FOR 7 DAYS THREE TIMES DAILY FOR 7 DAYS TWICE DAILY FOR 7 DAYS THEN AT BEDTIME FOR 7 DAYS 03/29 completed Not Available Not Available Not Available gabapentin 300 mg capsule TAKE 1 TO 2 CAPSULES BY MOUTH EVERY DAY AT BEDTIME 10/13 completed Not Available Not Available Not Available acetaminoph en 300 mg-codeine 60 mg tablet TAKE 1 TABLET BY MOUTH EVERY 6 HOURS NEEDED FOR PAIN 10/13 completed Not Available Not Available Not Available gabapentin 100 mg capsule TAKE 1 CAPSULE BY MOUTH THREE TIMES DAILY 08/18 completed Not Available Not Available Not Available budesonide DR - ER 3 mg capsule,del ayed,extend ed release TAKE 3 CAPSULES BY MOUTH ONCE DAILY active Not Available Not Available No t Available ibuprofen 600 mg tablet TAKE 1 TABLET BY MOUTH EVERY 6 TO 8 HOURS NEEDED FOR PAIN 10/13 completed Not Available Not Available Not Available Vitamin D2 1,250 mcg (50,000 unit) capsule TAKE 1 CAPSULE BY MOUTH TWO TIMES PER WEEK active Not Available Not Available No t Available naproxen 500 mg tablet TAKE 1 TABLET BY MOUTH TWICE DAILY WITH MEALS active Not Available Not Available No t Available amoxicillin 875 mg-potassiu m clavulanate 125 mg tablet TAKE 1 TABLET BY MOUTH TWICE DAILY UNTIL GONE 10/13 completed Not Available Not Available Not Available neomycin 3.5 mg/g-polymy chay B 10,000 unit/g-dexa meth 0.1 % eye oint USE STRIP OF OINTMENT ON LEFT UPPER EYELID (OK TO GET INTO EYE WELL) THREE TIMES DAILY FOR 5 DAYS, TWICE DAILY FOR 5 DAYS, ONCE DAILY FOR 5 DAYS, THEN STOP 03/29 completed Not Available Not Available Not Available moxifloxaci n 0.5 % eye drops INSTILL 1 DROP IN OPERATIVE EYE 4 TIMES DAILY FOR 7 DAYS THEN THREE TIMES DAILY FOR 7 DAYS 03/29 completed Not Available Not Available Not Available rosuvastati n 10 mg tablet TAKE 1 TABLET BY MOUTH ONCE DAILY 10/13 completed Not Available Not Available Not Available rosuvastati n 20 mg tablet TAKE 1 TABLET BY MOUTH ONCE DAILY FOR CHOLESTER OL active Not Available Not Available No t Available chlorhexidi ne gluconate 0.12 % mouthwash Swish and spit 15 ml BY MOUTH TWICE DAILY active Not Available Not Available No t Available Prolensa 0.07 % eye drops INSTILL 1 DROP IN OPERATIVE EYE AT BEDTIME FOR 2 WEEKS 03/29 completed Not Available Not Available Not Available Pennsaid 20 mg/gram/act uation (2 %) topical soln in metered-dos e pump APPLY 2 PUMPS (40 MG) TO THE AFFECTED KNEE(S) BY TOPICAL ROUTE 2 TIMES PER DAY active Not Available Not Available No t Available Vitals Date Recorded Body height Heart rate Body temperature Body mass index (BMI) Body weight Systolic And Diastolic Provider Name and Address Organization Details Last Updated DateTime 2 149.86 cm 75 /min 97.6 [degF] 20.2 kg/m2 59079.2 4 g 92/69 mm[Hg] [facility], [facility] 2 12:05:34 Date Recorded Body height Body mass index (BMI) Body weight Body temperature Heart rate Systolic And Diastolic Provider Name and Address Organization Details Last Updated DateTime 3 149.86 cm 20.2 kg/m2 48030.2 4 g 97.5 [degF] 70 /min 100/63 mm[Hg] CRISTA PAYAN [facility], [facility] 3 10:50:49 Date Recorded Body height Body mass index (BMI) Body weight Heart rate Body temperature Systolic And Diastolic Provider Name and Address Organization Details Last Updated DateTime 2 149.86 cm 20.2 kg/m2 51893.2 4 g 64 /min 97 [degF] 108/70 mm[Hg] CRISTA PAYAN [facility], [facility] 2 12:25:34 Social History Question Answer Notes LastModified by Organizat ion Details LastModified Time Tobacco Smoking Status Former Smoker GAUTAM LUNA null, [facility], [facility] 08/26/2021 12:06:44 In The 14 Days Before Symptom Onset, Have You Had Close Contact With A Laboratory-confirm ed COVID-19 While That Case Was Ill? No [email or web address] Information n ot available 08/26/2021 In The 14 Days Before Symptom Onset, Have You Had Close Contact With A Person Who Is Under Investigation For COVID-19 While That Person Was Ill? No [email or web address] Information not available 08/26/2021 Have You Been To An Area Known To Be High Risk For COVID-19? No [email or web address] Information not available 08/26/2021 Which Of Your Hands Is Dominant? Right [email or web address] Information n ot available 08/26/2021 What Was The Date Of Your Most Recent Tobacco Screening? 08/26/2021 [email or web address] Information not available 08/26/2021 Sex: Unknown Functional Status Question Answer Note LastModified by Organizat ion Details LastModified Time Do you use any illicit or recreational drugs? No [email or web address] Information not available 08/26/2021 Do you or have you ever used any other forms of tobacco or nicotine? No [email or web address] Information not available 08/26/2021 What is your level of alcohol consumption? Occasional [email or web address] Information not available 08/26/2021 Mental Status None recorded. Family History Relationship Description Onset Age of this Age Resolved Age Notes LastModified by Organization Details LastModified Time Unspecified Relation Rheumatoid arthritis [email or web address] Not available 08/14 12:06:23 Medical History Condition Response Coronary Artery Disease N Gout N Anxiety/Depression N Blood Transfusion N COPD N Pacemaker N Pseudogout N Arthritis N Blood Clot N Cancer N Stroke N GERD N High Cholesterol Y Liver Disease N Rheumatoid Arthritis N Kidney Disease N Heart Problems N Migraines N Thyroid Problems N Osteoporosis/Osteopenia Y Anemia N Ulcers N SLE N Heart Attack (NM) N Diabetes N Bleeding Disorder N Seizures/Epilepsy Y Tuberculosis N AIDS/HIV N Asthma N Connective Tissue Disorder N Peripheral Vascular Disease N Psoriasis N Hepatitis N Scleroderma N Pulmonary Embolism N Hypertension N Gynecological HistoryNo gynecological history recorded. Obstetrics History GPAL:G 0 P 0 0 0 0 Past Encounters Encounter ID Performer Location Encounter Start Date Encounter Closed Date Diagnosis/Indication Diagnosis SNOMED-CT Code Diagnosis ICD10 Code Diagnosis Note [id number] Shahla Friedman MD [facility] Office [address] [place] [id number] 1 08/26/2021 11:36:52 08/26/2021 12:59:04 Arthritis of right wrist 8766119272 943283 M13.831 [id number] Shahla Friedman MD [facility] Office [address] [place] [id number] 1 03/29/2022 11:58:54 03/29/2022 13:10:26 Arthritis of right wrist 8928477029 497608 M13.831 Sprain of thumb 28889128 4 S63.642A [id number] Shahla Friedman MD [facility] Office [address] [place] [address] [id number] 1 10/13/2022 10:49:54 10/13/2022 11:18:35 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 7883887546 947354 M13.841 Health Concerns Section Related Observation LastModified by Organization Detai ls LastModified Time None Recorded Concern Status LastModified by Organization Details LastModified Time None Recorded Advance Directives Directive None Recorded Payers Insurance Date Sequence Insurance Name Policy Number Policy Worrell Covered Member ID Worrell Member ID Guarantor Name 08/07/2021 2 [facility] (MEDICARE SUPPLEMENT) Pa Galloway [id number] Pa Galloway 10/10/2022 1 [place] Pa Galloway [id number] Pa Galloway Notes Date Note Type Note Provider Name and Address Organization Details Recorded Time 08/26/2021 text/html 65 year old abdoulaye casanova presents referred by Dr Flaherty for right thumb basal joint pain. Pain has been going on for a few months and she has tried icing and rest with minimal relief. 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 Shahla Friedman MD [address] [facility], [place], [address], [facility], [facility] 08/31/2021 02:07:13 03/29/2022 text/html A 66 year old self-referred female patient c/o significant recurrent right thumb CMC joint pain requesting repeat steroid injection. She is also complaining of a several week history of pain radiating pain through the ulnar aspect of her L thumb. She experiences discomfort performing activities of daily living (lifting items, opening jars). No clear recollection of trauma to left thumb. She has been wearing a brace with partial relief. Shahla Friedman MD [address] [facility], [place], [address], [facility], [facility] 06/10/2023 07:20:31 10/13/2022 text/html A 67 year old female patient referred by with right thumb CMCJ arthritis. Last steroid injection done on 03-29-2022, which provided her with months of relief. She has not been able to utilize her right hand for the past 10 days, and she does state that she does experience loss of water and sewer systems superintendent strength, pain, and discomfort with impaction to her activities of daily living including opening and closing jars. For today, she would like to receive a steroid injection into the right thumb CMCJ. Shahla Friedman MD [facility] [address], [place], [address], [facility], [facility] 10/13/2022 19:03:36 OBGyn Episode No OBEpisode recorded.
--- OUTSIDE RECORDS SUMMARY | 2024-12-04 11:02 | XMS_ITS | Encounter Summary ---
Author Organization [facility] Address [address] [place] [id number] Care Team Providers Care Osteopathic Neurologist Name Role Phone Artem Granados MD Primary Care Provider + Encounter Details Date Type Department Care Team (Late st Contact Info) Description 10/10/2024 Telephone [facility] [address] [place] [address] Artem Granados MD [address] [place] [address] Social History Tobacco Use Types Packs/Day Years [...] AM EDT documented as of this encounter Miscellaneous Notes * Telephone Encounter - Caro Boyer MA - 10/10/2024 12:59 PM EDT Informed pt this was not completed because she was supposed to have rescheduled the 6 month fu apptthat was canceled. Pt is now on the schedule for 10-23-24 and everything will be addressed at that follow up appt. * Telephone Encounter - Luis Enrique Ornelas RegSched Rep - 10/10/2024 10:27 AM EDT Caller: Lori Galloway Relationship: Self Best call back number: [phone] What is the best time to reach you: ANYTIME Who are you requesting to speak with (clinical staff, provider, specific staff member): ANYONE What was the call regarding: PATIENT HAD SENT [employer] MESSAGES ON 10/02/24 AND 10/03/24 ABOUT RE[facility]SAND REFERRAL. PATIENT WAS UNSURE OF WHY NOONE REACHED OUT TO HER. documented in this encounter Plan of Treatment Upcoming Encounters Date Type Department Care Team (Late st Contact Info) Description 12/12/2024 10:00 AM EDT Office Visit [facility] [address] [place] [address] Lawrence Shanks MD [address] [place] [phone] documented as of this encounter Visit Diagnoses Not on filedocumented in this encounter Care Teams Osteopathic Neurologist Relationship Specialty Start Date End Date Artem Granados MD [facility] [place][note 2] [place] [address] PCP - General Family Medicine 06/10/23 12/02/24 documented as of this encounter
--- OUTSIDE RECORDS SUMMARY | 2024-12-04 11:03 | XMS_ITS | Encounter Summary ---
Author Organization Healthcare Address [address] [place] [address] Care Team Providers Care [place] Name Role Phone Vikash Taylor MD Primary Care Provider [phone] Hellen Spencer Unavailable Unavailable Reason for Visit * Reason Comments Health Maint. Records request Encounter Details Date Type Department Care Team (Late st Contact Info) Description 11/28/2024 Patient Outreach [facility] [address] [place] [address] Hellen Spencer Health Maint. (Records request) Social History Tobacco Use Types Packs/Day Years [...] any time in the past 12 m [facility], were you homeless or living in a group home (including now)? No 11/24/2024 Utilities Answer Date Recorded In the past 12 months has th e [email or web address], gas, oil, or water [employer] threatened to shut off services in your home? No 11/24/2024 Comments No Sex and Gender Information Value Date Recorded Sex Assigned at Not on file Legal Sex Female 7:31 AM EDT Gender Identity Not on file Sexual Orientation Not on file documented as of this encounter Miscellaneous Notes * Progress Notes - Hellen Spencer - 11/28/2024 11:30 AM EDT Records Request Chart reviewed on: 11/28/2024 By [facility] Staff: Hellen Spencer Records Request Needed: Yes Care Gap Action Plan Outreach completed: Initial Outreach. Outcome: Requested Dexa scan and mammogram records from [facility] Requested colonoscopy records from [facility] Submitted Program Enrollment and tasks set for additional outreach Follow-up scheduled for:7 days. documented in this encounter Plan of Treatment Upcoming Encounters Date Type Department Care Team (Late st Contact Info) Description 12/18/2024 12:20 PM EDT Office Visit [facility] [address] [place] [address] Vikash Taylor MD [address] [place] [address] 01/18/2025 10:00 AM EDT Office Visit [facility] [address], [address] [place] [address] Karen Pearce PA [address] [place] [address] documented as of this encounter Visit Diagnoses Not on filedocumented in this encounter Additional Health Concerns Assessment Noted Time PHQ-9 Depression Total Score: 0 11/28/19 10:17 AM EDT A fall risk assessment has been complete d for the patient 11/27/2024 10:17 AM EDT A Body Mass Index follow-up plan has been documented for the patient 11/27/2024 11:49 AM EDT documented as of this encounter Care Teams [place] Relationship Specialty Start Date End Date Vikash Taylor MD [address] [place] [address] PCP - General Family Medicine 11/27/24 Hellen Spencer Clinical Lineworker 11/28/24 documented as of this encounter
--- OUTSIDE RECORDS SUMMARY | 2024-12-04 11:03 | XMS_ITS | Clinical Summary ---
Author Organization [facility] Address [address] [place] [address] Care Team Providers Care Piercing Artist Name Role Phone Vikash Taylor MD Primary Care Provider [phone] Allergies Active Allergy Reactions Criticality Noted Date Comments Metronidazole Hives,Rash High 06/17/2016 Vaginal cream Medications omeprazole (priLOSEC) 20 MG capsule Take 1 capsule by mouth Every 12 (Twelve) Hours. 09/16/19 24 Active dicyclomine (BENTYL) 10 MG capsule Take 1 capsule by mouth 4 (Four) Times a Day Before Meals & at Bedtime. 09/16/19 24 Active rosuvastatin (CRESTOR) 20 MG tabletIndicatio ns:Hypercholest erolemia Take 1 tablet by mouth Daily. 90 tablet 3 03/26/20 24 Active denosumab (PROLIA) 60 MG/ML solution prefilled syringe syringeIndicati ons:Age-related osteoporosis without current pathological fracture Inject 1 mL under the skin into the appropriate area as directed Every 6 (Six) Months. 1 mL 3 05/31/19 25 Active levETIRAcetam (KEPPRA) 500 MG tablet TAKE 1 TABLET TWICE DAILY 180 tablet 10/11/19 25 Active Procto-Med HC 2.5 % rectal cream Insert into the rectum 2 (Two) Times a Day. 09/22/19 25 Active gabapentin (NEURONTIN) 400 MG capsuleIndicati ons:Lumbar radiculopathy, chronic Take 2 capsules by mouth every night at bedtime. 180 capsule 1 10/24/19 25 Active traZODone (DESYREL) 50 MG tabletIndicatio ns:Chronic insomnia TAKE 1 TO 2 TABLETS EVERY NIGHT NEEDED FOR SLEEP 90 tablet 1 11/22/19 25 Active traZODone (DESYREL) 50 MG tabletIndicatio ns:Chronic insomnia TAKE 1 TO 2 TABLETS EVERY NIGHT NEEDED FOR SLEEP 90 tablet 10/11/19 25 025 Discontinued Active Problems Problem Noted Date Diagnosed Date Age-related osteoporosis wit hout current pathological fracture 06/10/2023 Assessment & Plan (06/10/2023 12:46 PM EST): Severity unknown. Continue Prolia. DEXA scan ordered Chronic insomnia 06/10/2023 Assessment & Plan (06/10/2023 12:47 PM EST): Condition controlled with trazodone. Continue current medication Hypercholesterolemia 06/10/2023 Assessment & Plan (06/10/2023 12:47 PM EST): Lipid abnormalities are improving with treatment. Pharmacotherapy as ordered. Lipids will be reassessed in 6 months. Seizure disorder 06/10/2023 Assessment & Plan (06/10/2023 12:48 PM EST): Condition is stable. Continue current medication Lumbar radiculopathy, chronic 06/10/2023 Assessment & Plan (10/23/2024 1:09 PM EDT): Will be referred to [facility] interventional pain management for repeat evaluation and consideration of further interventions. She will continue gabapentin 800 mg nightly. Assessment & Plan (06/10/2023 12:48 PM EST): Condition is currently stable. I will take over prescribing of her gabapentin 800 mg at night. Use of medicine during the day causes drowsiness. Patient will be referred to pain management for interventions Cervical spine arthritis 06/10/2023 Assessment & Plan (10/23/2024 1:09 PM EDT): Patient will be referred to [facility] interventional pain management for repeat evaluation Assessment & Plan (06/10/2023 12:46 PM EST): Refer to pain management Degenerative arthritis of thumb, right Assessment & Plan (06/10/2023 12:47 PM EST): Patient is benefited from injections in the past. I told the patient I do not know if Dr. Araujo will inject the thumb. If not we will refer her to one of our hand orthopedist Microscopic colitis 05/16/2015 Assessment & Plan (06/10/2023 12:48 PM EST): Currently condition is stable. Follow-up with Dr. Michel as planned Encounters Date Type Department Care Team Description 11/21/2024 Refill [facility] [address] [phone] Artem Granados MD Chronic insomnia 10/23/2024 10:45 AM EDT Office Visit [facility] [address] [address] Artem Granados MD Chronic pain syndrome (Primary Dx); Lumbar radiculopathy, chronic; Cervical spine arthritis 10/23/2024 Travel 10/18/2024 Refill [facility] [address] [address] Artem Granados MD Lumbar radiculopathy, chronic 10/10/2024 Telephone [facility] [address] [address] Artem Granados MD 10/06/2024 Refill [facility] [address] [address] Artem Granados MD Chronic insomnia 09/10/2024 10:40 AM EDT Office Visit [facility] [address] [place] [address] Lawrence Shanks MD Arthritis of carpometacarpal (CMC) joint of right thumb (Primary Dx); Metacarpophalangeal joint pain of right hand 09/10/2024 Travel from Last 3 Months Immunizations Immunization Administration Dates Next Due Flublok 18+yrs 01/25/2020 Fluzone High-Dose 65+YRS 03/26/2024 Pneumococcal Conjugate 13-Valent (PCV13) 021 Shingrix 10/16/2018,08/17/2018 Tdap 12/05/2020,07/19/2011 Family History Medical History Relation Name Comments Hyperlipidemia Daughter Lianna Hyperlipidemia Father Leo Osteoporosis Father Leo Arthritis Sister Kate Rheumatoid arth ritis Broken bones Sister Kate foot Hyperlipidemia Sister Kate Osteoporosis Sister Kate Rheumatologic disease Sister Kate Rheuma tic fever, arthritis Relation Name Status Comments Daughter Lianna Alive Father Leo Sister Kate Social History Tobacco Use Types Packs/Day Years [...] Orientation Straight 10/16/2024 9: 41 AM EDT Last Filed Vital Signs Vital Sign Reading [...] Mass Index 20.68 10/23/2024 10:47 AM EDT Plan of Treatment Upcoming Encounters Date Type Department Care Team (Late st Contact Info) Description 12/12/2024 10:00 AM EDT Office Visit [facility] [address] [phone] Lawrence Shanks MD [address] [facility] [address] [place] [address] Health Maintenance Due Date Last Done Comments COLOGUARD 09/08/2000 COLON CANCER SCREENING 5 YEA R SIGMOIDOSCOPY 09/08/2000 CT COLONOGRAPHY 09/08/2000 FECAL OCCULT BLOOD TEST 09/08/2000 FIT Testing (1 year) 09/08/2000 Pneumococcal Vaccine 50+ (2 of 2 - PPSV23) 12/05/2021 12/05/2020 ANNUAL WELLNESS VISIT 06/10/2023 HEPATITIS C SCREENING 06/10/2023 COVID-19 Vaccine (1 - 2023-2 5 season) 2024 INFLUENZA VACCINE 02/13/2025 03/26/2024, 01/25/2020 LIPID PANEL 03/26/2025 03/26/2024, 11/15, 01/17/2020, Additional history exists DXA SCAN 01/18/2026 01/19/2024, 08/2023, 01/18/2024, Additional history exists MAMMOGRAM 01/19/2026 01/20/2024, 0 10/2023, 01/20/2024, Additional history exists TDAP/TD VACCINES (3 - Td or Tdap) 12/05/2030 021, 07/19/2011 COLONOSCOPY 10/26/2033 10/27/2023, 10/14, 10/27/2023, Additional history exists COLORECTAL CANCER SCREENING 10/26/2033 ZOSTER VACCINE Completed 10/16/2018, 08/17/2018 Procedures Procedure Name Priority Date/Time Associated Diagnosis Comments ID ARTHROCENTESIS ASPIR&/INJ SMALL JT/BURSA W/O US Routine 09/10/2024 10:48 AM EDT Metacarpophalangeal joint pain of right hand ID ARTHROCENTESIS ASPIR&/INJ SMALL JT/BURSA W/O US Routine 09/10/2024 10:47 AM EDT Arthritis of carpometacarpal (CMC) joint of right thumb LIPID PANEL Routine 03/26/2024 9:55 AM EST Hypercholesterolemia SCANNED - MAMMO 01/20/2024 SCANNED - DEXA 01/18/2024 SCANNED - COLONOSCOPY 10/27/2023 from Last 3 Months or Most Recently Relevant to Health Maintenance Results * ID ARTHROCENTESIS ASPIR&/INJ SMALL JT/BURSA W/O US (09/10/2024 10:48 AM EDT) Narrative Raysa Goldman R.T.(R) - 09/10/2024 10:48 AM EDT Raysa Goldman R.T.(R) 09/10/2024 10:59 AM - Small Joint Arthrocentesis: R index MCP on 09/10/2024 10:48 AM Indications: pain Details: 27 G needle, volar approach Medications: 0.5 mg triamcinolone acetonide 40 MG/ML; 0.5 mL lidocaine PF 1% 1 % Outcome: tolerated well, no immediate complications Procedure, treatment alternatives, risks and benefits explained, specific risks discussed. Consent was given by the patient. Immediately prior to procedure a time out was called to verify the correct patient, procedure, equipment, desktop support manager and site/side marked as required. Patient was prepped and draped in the usual sterile fashion. Lawrence Shanks MD PROCEDURE/MINOR SURGICAL ORDERABLES Final Result * ID ARTHROCENTESIS ASPIR&/INJ SMALL JT/BURSA W/O US (09/10/2024 10:47 AM EDT) Narrative Lawrence Shanks MD - 09/10/2024 10:47 AM EDT Lawrence Shanks MD 09/10/2024 10:59 AM - Small Joint Arthrocentesis: R thumb CMC on 09/10/2024 10:47 AM Indications: pain Details: 27 G needle, volar approach Medications: 0.5 mg triamcinolone acetonide 40 MG/ML; 0.5 mL lidocaine PF 1% 1 % Outcome: tolerated well, no immediate complications Procedure, treatment alternatives, risks and benefits explained, specific risks discussed. Consent was given by the patient. Immediately prior to procedure a time out was called to verify the correct patient, procedure, equipment, desktop support manager and site/side marked as required. Patient was prepped and draped in the usual sterile fashion. Lawrence Shanks MD PROCEDURE/MINOR SURGICAL ORDERABLES Final Result * (ABNORMAL) Lipid Panel (03/26/2024 9:55 AM EST) Total Cholesterol 169 0 - 200 mg/dL [facility] Comment: Cholesterol Reference Ranges (U.S. Department of Health and Human Services ATP III Classifications) Desirable <200 mg/dL Borderline High 200-239 mg/dL High Risk >240 mg/dL Triglyceride Reference Ranges (U.S. Department of Health and Human Services ATP III Classifications) Normal <150 mg/dL Borderline High 150-199 mg/dL High 200-499 mg/dL Very High >500 mg/dL HDL Reference Ranges (U.S. Department of Health and Human Services ATP III Classifications) Low <40 mg/dl (major risk factor for CHD) High >60 mg/dl ('negative' risk factor for CHD) LDL Reference Ranges (U.S. Department of Health and Human Services ATP III Classifications) Optimal <100 mg/dL Near Optimal 100-129 mg/dL Borderline High 130-159 mg/dL High 160-189 mg/dL Very High >189 mg/dL Triglycerides 77 0 - 150 mg/dL [facility] HDL Cholesterol 75(H) 40 - 60 mg/dL [facility] VLDL Cholesterol Prashanth 14 5 - 40 mg/dL [facility] LDL Chol Calc (NIH) 80 0 - 100 mg/dL [facility] Blood 03/26/2024 9:55 AM EST 03/26/2024 Narrative [facility] - 03/27/2024 3:08 AM EST Performed at: [address] [id number] Manager Code: Cipriano Prescott MD, Phone: [phone] Patient Fasting: Y us Artem Granados MD LAB BLOOD ORDERABLES Fin al Result [facility] [address] [place] [address], [place] [phone] [facility] [address] [place] [address], [place] [phone] * MAMMO Scan (01/20/2024) Anatomical Region Laterality Modality Other Artem Granados MD CHART REVIEW TABS Fin al Result * DEXA Scan (01/18/2024) Anatomical Region Laterality Modality Other Artem Granados MD CHART REVIEW TABS Fin al Result * Colonoscopy, Scan (10/27/2023) Artem Granados MD CHART REVIEW TABS Fin al Result from Last 3 Months or Most Recently Relevant to Health Maintenance Insurance MEDICARE A & B Member Subscriber Plan / Payer (Ef fective 2020-Present) Name:Lori Galloway Member ID:[id number] Relation to Subscriber:Self Name:Nilesh Lori Subscriber ID:[id number] Payer ID:[id number] Group ID:Not on file Type:Not on file Address: [address] Care Teams Piercing Artist Relationship Specialty Start Date End Date Vikash Taylor MD [address] [place] [id number] PCP - General Family Medicine 12/03/24
--- OUTSIDE RECORDS SUMMARY | 2024-12-04 11:03 | XMS_ITS | Encounter Summary ---
Author Organization Healthcare Address [address] [place] [address] Care Team Providers Care Interactive Media Project Manager Name Role Phone Unavailable Primary Care Provider Unavailabl e Encounter Details Date Type Department Care Team (Latest Contact Info) Description 11/20/2024 Travel Social History Tobacco Use Types Packs/Day Years Used Date Smoking Tobacco: Never Assessed Comments Unknown Sex and Gender Information Value Date Recorded Sex Assigned at Not on file Legal Sex Female 7:31 AM EDT Gender Identity Not on file Sexual Orientation Not on file documented as of this encounter Plan of Treatment Upcoming Encounters Date Type Department Care Team (Late st Contact Info) Description 12/18/2024 12:20 PM EDT Office Visit [facility] [address] [place] [address] Vikash Taylor MD [address] [place] [address] 01/18/2025 10:00 AM EDT Office Visit [facility] [address], [address] [place] [address] Karen Pearce PA [address] [place] [address] documented as of this encounter Visit Diagnoses Not on filedocumented in this encounter
--- OUTSIDE RECORDS SUMMARY | 2024-12-04 11:03 | XMS_ITS | Encounter Summary ---
Author Organization Healthcare Address [address] [place] [address] Care Team Providers Care Supply Clerk Name Role Phone Vikash Taylor MD Primary Care Provider [phone] Encounter Details Date Type Department Care Team (Latest Contact Info) Description 11/27/2024 Travel Social History Tobacco Use Types Packs/Day [...] any time in the past 12 m [facility], were you homeless or living in a skilled nursing (including now)? No 11/24/2024 Utilities Answer Date Recorded In the past 12 months has th e electric, gas, oil, or water company threatened to shut off services in your home? No 11/24/2024 Comments No Sex and Gender Information Value Date Recorded Sex Assigned at Not on file Legal Sex Female 7:31 AM EDT Gender Identity Not on file Sexual Orientation Not on file documented as of this encounter Functional Status * AUDIT-C Score [...] all 11/27/2024 10:17 AM EDT Adi Penn Patient Health Questionnaire-9 Score 0 11/27/2024 10:17 [...] 11/27/2024 10:29 AM EDT Juan Manuel Penn L 2. Non-Specific Active Suici bakari Thoughts (Past 1 Month) No 11/27/2024 10:29 AM EDT Vinita Penn 6. Suicidal Behavior (Lifetime) No 10:29 AM EDT Vinita Penn documented as of this encounter Plan of Treatment Upcoming Encounters Date Type Department Care Team (Late st Contact Info) Description 12/18/2024 12:20 PM EDT Office Visit [facility] [address] [place] [address] Vikash Taylor MD [address] [place] [address] 01/18/2025 10:00 AM EDT Office Visit [facility] [address] [facility] [address] [facility], [address] [place] [address] Karen Pearce PA [address] [facility] [address] [place] [address] documented as of this encounter Visit Diagnoses Not on filedocumented in this encounter Additional Health Concerns Assessment Noted Time PHQ-9 Depression Total Score: 0 11/28/19 25 10:17 AM EDT A fall risk assessment has been complete d for the patient 11/27/2024 10:17 AM EDT A Body Mass Index follow-up plan has been documented for the patient 11/27/2024 11:49 AM EDT documented as of this encounter Care Teams Supply Clerk Relationship Specialty Start Date End Date Vikash Taylor MD [address] [place] [address] PCP - General Family Medicine 11/27/24 documented as of this encounter
--- OUTSIDE RECORDS SUMMARY | 2024-12-04 11:03 | XMS_ITS | Data Portability ---
Author Organization [place] - Barrera Flaherty MD, [facility] Address [address] [place] [address] Care Team Providers Care Social Services Counselor Name Role Phone ALEX CHAUDHARY Primary Care Provider PIETER GALLAGHER Orthopedic Surgeon Assessment Encounter Date Assessment Date Assessment LastModified by Organization Details LastModified Time 10/14/2021 10/14/2021 I had a pleasant visit with Lori Galloway today. A range of treatment options were discussed and all questions answered to the patient's satisfaction. She is referred by Dr. Silver. She has bilateral hip/upper thigh pain. This started in 2019 and has slowly progressed. She was seeing Dr. Derick Willams but he no longer takes her insurance. She has also seen Dr. Ignacio in the past for spine evaluation but surgery was not recommended. Her 11/03/19 lumbar MRI shows L1-4 disc protrusions and annular fissures and L4-5 facet joint arthritis with inflammatory edema. She is not a surgical candidate. Her pain could very well but emanating from her spine. I discussed this with her and suggested we try LAYLA because the quality of her pain is more nerve-like. If these fail we will consider direct FJI to address the inflammatory edema in her L4-5 facet joints and the OA. She had a significant response with the TFESI. Her knee xray shows mild OA. She had 5 months of relief with the knee injection I did. I repeated it wtih benefit. She now has a change in her left knee and feels a popping sensation with movement. It is quite painful for her and she is having trouble ambulating and completed her ADL's. I will order MRI. The patient and I arrived at the following treatment plan: - Psychometric testing today. - Refill gabapentin 400mg 1-2 caps QHS #60 with 2RF. - Continue melatonin. - Consider repeat bilateral L3-4 and L4-5 TFESI. - Consider bilateral L4-5 FJI for the inflammatory swelling. - Order left knee MRI at [facility] in [place]. - Consider repeat intraarticular knee injection if there isn't a lot identified here. If something is evident, consider referral to ortho. - Consider referral for knee viscosupplementation - Consider genicular nerve blocks/RF. - Continue Pennsaid or Voltaren gel - Consider referral to orthopedist. - Continue with Dr. Shahla Friedman for hand/thumb pain. - Consider PT. - Follow up 6 weeks. Psychometric Testing: Performed today using computerized testing with physician interpretation in order to identify the presence of psychogenic factors to the patient s pain complaint so as to guide medication management and other treatment modalities. PROMIS-29 reviewed and notes moderate pain interference and physical dysfunction along with moderate impact pain. This is present in conjunction without anxiety/depression. I will continue to monitor for development/worsening of mental health disorders and opioid use disorder. We will track these outcomes over time and adjust therapy accordingly. Results discussed with patient. 08/18/20 Pain and Dysfunction Scoring: Global Pain - 7/10 (moderate pain) Pain Impact - 27/50 (moderate impact) Oswestry Disability Index - 22% (moderate) Opioid Risk Tool - 0/26 (low risk) 01/23/21 Pain and Dysfunction Scoring: Global Pain - 5/10 (moderate pain) Pain Impact - 25/50 (moderate impact) Oswestry Disability Index - 30% (moderate) Opioid Risk Tool - 0/26 (low risk) 08/06/21 Pain and Dysfunction Scoring: Global Pain - 6/10 (moderate pain) Pain Impact - 36/50 (high impact) Oswestry Disability Index - 28% (moderate) Opioid Risk Tool - 0/26 (low risk) Discussed with patient the risks and benefits of opioid therapy. Discussed potential side effects of nausea, pruritis, constipation, sedation/drowsiness, immune and endocrine system dysfunction, inability to safely operate machinery, inability to make sound decisions, potential for respiratory depression and . Counseled that these medications must be used as prescribed and if any aberrancy is detected then a in-depth discussion will ensue and weaning or referral to a drug rehabilitation program will occur. lnstructed the patient to adhere to the requirements of the pain management agreement which he/she has read and signed. Medications will not be replaced if lost or stolen; it is the patient's responsibility to secure the medications. Proper opioid monitoring includes regular appointments (more frequent for higher risk patients) urine drug toxicology; pill counts when mandated; querying the [place] PDMP system every time a prescription for controlled substance is issued; discussing medications with patient's pharmacy; and possibly involving family members in the management of controlled substance administration. Not available 10/14/2021 11:29:50 12/23/2021 12/23/2021 I had a pleasant visit with Lori Galloway today. A range of treatment options were discussed and all questions answered to the patient's satisfaction. She is referred by Dr. Silver. She has bilateral hip/upper thigh pain. This started in 2018 and has slowly progressed. She was seeing Dr. Derick Willams but he no longer takes her insurance. She has also seen Dr. Ignacio in the past for spine evaluation but surgery was not recommended. Her 11/03/19 lumbar MRI shows L1-4 disc protrusions and annular fissures and L4-5 facet joint arthritis with inflammatory edema. She is not a surgical candidate. Her pain could very well but emanating from her spine. I discussed this with her and suggested we try LAYLA because the quality of her pain is more nerve-like. If these fail we will consider direct FJI to address the inflammatory edema in her L4-5 facet joints and the OA. She had a significant response with the TFESI. Her knee xray shows mild OA. She had 5 months of relief with the knee injection I did. I repeated it with benefit. She had left knee arthroscopic surgery in mid [address] Gallagher and had meniscectomy with benefit. Her lower extremity pain is returning at this time and we will repeat the LAYLA. The patient and I arrived at the following treatment plan: - Psychometric testing every 12 weeks. - Refill gabapentin 400mg 1-2 caps QHS #60 with 2RF. - Continue melatonin. - Schedule repeat bilateral L3-4 and L4-5 TFESI. - Consider bilateral L4-5 FJI for the inflammatory swelling. - Consider referral for knee viscosupplementation. - Consider genicular nerve blocks/RF. - Continue Pennsaid or Voltaren gel - Continue with Dr. Gallagher. - Continue with Dr. Shahla Friedman for hand/thumb pain. - Consider PT. - Follow up 6 weeks. Psychometric Testing: Performed today using computerized testing with physician interpretation in order to identify the presence of psychogenic factors to the patient s pain complaint so as to guide medication management and other treatment modalities. PROMIS-29 reviewed and notes moderate pain interference and physical dysfunction along with moderate impact pain. This is present in conjunction without anxiety/depression. I will continue to monitor for development/worsening of mental health disorders and opioid use disorder. We will track these outcomes over time and adjust therapy accordingly. Results discussed with patient. 01/23/21 Pain and Dysfunction Scoring: Global Pain - 5/10 (moderate pain) Pain Impact - 25/50 (moderate impact) Oswestry Disability Index - 30% (moderate) Opioid Risk Tool - 0/26 (low risk) 08/06/21 Pain and Dysfunction Scoring: Global Pain - 6/10 (moderate pain) Pain Impact - 36/50 (high impact) Oswestry Disability Index - 28% (moderate) Opioid Risk Tool - 0/26 (low risk) 10/14/21 Pain and Dysfunction Scoring: Global Pain - 7/10 (moderate pain) Pain Impact - 44/50 (high impact) Oswestry Disability Index - 42% (severe) Opioid Risk Tool - 0/26 (low risk) Discussed with patient the risks and benefits of opioid therapy. Discussed potential side effects of nausea, pruritis, constipation, sedation/drowsiness, immune and endocrine system dysfunction, inability to safely operate machinery, inability to make sound decisions, potential for respiratory depression and . Counseled that these medications must be used as prescribed and if any aberrancy is detected then a in-depth discussion will ensue and weaning or referral to a drug rehabilitation program will occur. lnstructed the patient to adhere to the requirements of the pain management agreement which he/she has read and signed. Medications will not be replaced if lost or stolen; it is the patient's responsibility to secure the medications. Proper opioid monitoring includes regular appointments (more frequent for higher risk patients) urine drug toxicology; pill counts when mandated; querying the [place] PDMP system every time a prescription for controlled substance is issued; discussing medications with patient's pharmacy; and possibly involving family members in the management of controlled substance administration. Not available 12/23/2021 12:45:25 10/14/2022 10/14/2022 I had a pleasant visit with Lori Galloway today. A range of treatment options were discussed and all questions answered to the patient's satisfaction. She is referred by Dr. Silver. She has bilateral hip/upper thigh pain. This started in 2019 and has slowly progressed. She was seeing Dr. Derick Willams but he no longer takes her insurance. She has also seen Dr. Ignacio in the past for spine evaluation but surgery was not recommended. Her 11/03/19 lumbar MRI shows L1-4 disc protrusions and annular fissures and L4-5 facet joint arthritis with inflammatory edema. She is not a surgical candidate. Her pain could very well but emanating from her spine. I discussed this with her and suggested we try ALYLA because the quality of her pain is more nerve-like. If these fail we will consider direct FJI to address the inflammatory edema in her L4-5 facet joints and the OA. She had a significant response with the TFESI. Her knee xray shows mild OA. She had 5 months of relief with the knee injection I did. I repeated it with benefit. She had left knee arthroscopic surgery in mid [address] Gallagher and had meniscectomy with benefit. She has some limitations in ROM but has continually improved over time. Her lower extremity pain is returning at this time and we will repeat the LAYLA. The patient and I arrived at the following treatment plan: - Psychometric testing every 12 weeks. - Refill gabapentin 400mg 1-2 caps BID #120 with 2RF. - Continue melatonin. - Schedule repeat bilateral L3-4 and L4-5 TFESI. - Consider bilateral L4-5 FJI for the inflammatory swelling. - Consider referral for knee viscosupplementation. - Consider genicular nerve blocks/RF. - Continue Pennsaid or Voltaren gel - Continue with Dr. Gallagher. - Continue with Dr. Shahla Friedman for hand/thumb pain. - Consider PT. - Follow up 6 weeks. Psychometric Testing: Performed today using computerized testing with physician interpretation in order to identify the presence of psychogenic factors to the patient s pain complaint so as to guide medication management and other treatment modalities. PROMIS-29 reviewed and notes moderate pain interference and physical dysfunction along with moderate impact pain. This is present in conjunction without anxiety/depression. I will continue to monitor for development/worsening of mental health disorders and opioid use disorder. We will track these outcomes over time and adjust therapy accordingly. Results discussed with patient. 08/06/21 Pain and Dysfunction Scoring: Global Pain - 6/10 (moderate pain) Pain Impact - 36/50 (high impact) Oswestry Disability Index - 28% (moderate) Opioid Risk Tool - 0/26 (low risk) 10/14/21 Pain and Dysfunction Scoring: Global Pain - 7/10 (moderate pain) Pain Impact - 44/50 (high impact) Oswestry Disability Index - 42% (severe) Opioid Risk Tool - 0/26 (low risk) 10/14/22 Pain and Dysfunction Scoring: Global Pain - 7/10 (moderate pain) Pain Impact - 28/50 (moderate impact) Oswestry Disability Index - 28% (moderate) Opioid Risk Tool - 0/26 (low risk) Discussed with patient the risks and benefits of opioid therapy. Discussed potential side effects of nausea, pruritis, constipation, sedation/drowsiness, immune and endocrine system dysfunction, inability to safely operate machinery, inability to make sound decisions, potential for respiratory depression and . Counseled that these medications must be used as prescribed and if any aberrancy is detected then a in-depth discussion will ensue and weaning or referral to a drug rehabilitation program will occur. lnstructed the patient to adhere to the requirements of the pain management agreement which he/she has read and signed. Medications will not be replaced if lost or stolen; it is the patient's responsibility to secure the medications. Proper opioid monitoring includes regular appointments (more frequent for higher risk patients) urine drug toxicology; pill counts when mandated; querying the [place] PDMP system every time a prescription for controlled substance is issued; discussing medications with patient's pharmacy; and possibly involving family members in the management of controlled substance administration. Not available 10/14/2022 18:11:56 Plan of Treatment Reminders Order Date Submit Date Provider Last Modified By Organization Details Last Modified Time Details Appointments None recorded. Lab None recorded. Referral None recorded. Procedures None recorded. Surgeries None recorded. Imaging MRI, knee, w/o contrast 2021 022 [place] [facility] [place], [address], [place], [address], 16:28:59 Medication Orders gabapentin 400 mg capsule 2021 022 [facility], [address] [place], [address], 11:25:22 Patient TargetsNo targets recorded. Patient InstructionsNo instructions recorded. Reason for Referral None Reported. Results Created Date Observation Date Name Description Value Unit Range Abnormal Flag Note LastModifiedBy Organization Detail LastModifiedTime 10/15/19 22 10/14/2021 MRI, knee, w/o contr ast No observ ation record ed. [email or web address] [facility] [place] [address], [place], [address], 10/15/2021 00:14:16 Result Notes None recorded. Procedures Surgical History Date Name Laterality Status Provider Name and Address Organization Details Recorded Time 11/03/19 23 Lumbar TFESI completed Antony Flaherty MD [address] [place] [address] [address], [place], [address], [place] Nahomi Flaherty MD 11/02/2022 17:36:02 01/20/20 22 Lumbar TFESI completed Antony Flaherty MD [address] [place] [address] [address], [place], [address], [place] Nahomi Flaherty MD 01/19/2022 14:33:54 08/07/19 22 Knee injection, left, with ultrasound completed MD Óscar French[address] [place] [address] [address], [place], [address], AJ[place] Flaherty MD 08/06/2021 16:33:40 02/04/20 21 Lumbar TFESI completed MD Radha French [facility] [address], [place], [address], AJ[place] Flaherty MD 02/03/2021 13:37:53 01/24/20 21 Knee injection, left, with ultrasound completed MD Óscar French[address] [place] [address] [address], [place], [address], AJAY Flaherty MD 01/23/2021 13:06:00 08/19/19 21 Knee injection, left, with ultrasound completed MD Radha French [facility] [address], [place], [address], AJAY Flaherty MD 08/18/2020 12:48:08 04/29/20 20 Lumbar TFESI completed MD Radha French [facility] [address], [place], [address], AJ[place] Flaherty MD 04/29/2020 11:59:15 04/21/20 20 Knee injection, left, with ultrasound completed Antony Flaherty MD [address] [place] [address] [address], [place], [address], [place] Flaherty MD 04/21/2020 12:01:21 04/08/20 20 Lumbar TFESI completed MD Radha French [facility] [address], [place], [address], [place] Flaherty MD 04/08/2020 11:32:07 Hysterectomy completed Alcira Flaherty MD 03/24/2020 11:01:32 tonsillectomy completed Alcira Flaherty MD 03/24/2020 11:01:40 Imaging Results None recorded. Procedure Notes None recorded. Medical Equipment None Reported. Allergies Allergen ID Allergen Name Allergen Category Reaction Reaction Severity Criticality Documentation Date Start Date Code Code System Note Provider Name and Address Organization Details Recorded Time 893 Flagyl medicatio n Not available Not available Not available 03/24/2020 6 RxNorm AJAY Mccoy MD 0 10:59:29 Medications Name Sig Start Date Stop Date Status Note LastModified by Organization Details LastModified Time amoxicillin 500 mg capsule TAKE ONE CAPSULE BY MOUTH THREE TIMES DAILY UNTIL FINISHED 10/14 completed Not Available Not Available Not Available [...] gabapentin 400 mg capsule TAKE 1 CAPSULE THREE TIMES A DAY 2022 active Not Available Not Available Not Avai lable acetaminoph en 300 mg-codeine 30 mg tablet TAKE 1 TABLET BY MOUTH EVERY 6 TO 8 HOURS NEEDED FOR PAIN active Not Available Not Available No t Available ketorolac 0.5 % eye drops INSTILL 1 DROP INTO LEFT EYE 4 TIMES DAILY. START DAY OF SURGERY active Not Available Not Available No t Available oxycodone-a cetaminophe n 5 mg-325 mg tablet active Not Available Not Available No t Available prednisolon e acetate 1 % eye drops,suspe nsion INSTILL 1 DROP IN OPERATIVE EYE 4 TIMES DAILY FOR 7 DAYS THREE TIMES DAILY FOR 7 DAYS TWICE DAILY FOR 7 DAYS THEN AT BEDTIME FOR 7 DAYS active Not Available Not Available No t Available gabapentin 300 mg capsule TAKE 1 TO 2 CAPSULES BY MOUTH EVERY DAY AT BEDTIME 10/14 completed Not Available Not Available Not Available acetaminoph en 300 mg-codeine 60 mg tablet TAKE 1 TABLET BY MOUTH EVERY 6 HOURS NEEDED FOR PAIN active Not Available Not Available No t Available gabapentin 100 mg capsule TAKE 1 CAPSULE BY MOUTH THREE TIMES DAILY 08/18 completed Not Available Not Available Not Available budesonide DR - ER 3 mg capsule,del ayed,extend ed release TAKE 3 CAPSULES BY MOUTH ONCE DAILY active Not Available Not Available No t Available ibuprofen 600 mg tablet TAKE 1 TABLET BY MOUTH EVERY 6 TO 8 HOURS NEEDED FOR PAIN active Not Available Not Available No t Available Vitamin D2 1,250 mcg (50,000 unit) capsule TAKE 1 CAPSULE BY MOUTH TWO TIMES PER WEEK active Not Available Not Available No t Available naproxen 500 mg tablet TAKE 1 TABLET BY MOUTH TWICE DAILY WITH MEALS active Not Available Not Available No t Available amoxicillin 875 mg-potassiu m clavulanate 125 mg tablet TAKE 1 TABLET BY MOUTH TWICE DAILY UNTIL GONE 10/14 completed Not Available Not Available Not Available neomycin 3.5 mg/g-polymy chay B 10,000 unit/g-dexa meth 0.1 % eye oint USE STRIP OF OINTMENT ON LEFT UPPER EYELID (OK TO GET INTO EYE WELL) THREE TIMES DAILY FOR 5 DAYS, TWICE DAILY FOR 5 DAYS, ONCE DAILY FOR 5 DAYS, THEN STOP active Not Available Not Available No t Available moxifloxaci n 0.5 % eye drops INSTILL 1 DROP IN OPERATIVE EYE 4 TIMES DAILY FOR 7 DAYS THEN THREE TIMES DAILY FOR 7 DAYS active Not Available Not Available No t Available rosuvastati n 10 mg tablet TAKE 1 TABLET BY MOUTH ONCE DAILY active Not Available Not Available No t Available rosuvastati n 20 mg tablet TAKE 1 TABLET BY MOUTH ONCE DAILY FOR CHOLESTER OL active Not Available Not Available No t Available chlorhexidi ne gluconate 0.12 % mouthwash Swish and spit 15 ml BY MOUTH TWICE DAILY 10/14 completed Not Available Not Available Not Available Prolensa 0.07 % eye drops INSTILL 1 DROP IN OPERATIVE EYE AT BEDTIME FOR 2 WEEKS active Not Available Not Available No t Available Pennsaid 20 mg/gram/act uation (2 %) [...] Details Last Updated DateTime 2 149.86 cm 92 /min 97.16 [degF] 20.4 kg/m2 05800.7 6 g 108/62 mm[Hg] Alcira Flaherty MD 2 10:59:08 Date Recorded Body height Heart rate Body temperature Body mass index (BMI) Body weight Systolic And Diastolic Provider Name and Address Organization Details Last Updated DateTime 3 149.86 cm 88 /min 97.16 [degF] 19.6 kg/m2 99770.4 6 g 114/60 mm[Hg] Alcira Flaherty MD 3 17:11:37 Date Recorded Body height Heart rate Body temperature Body mass index (BMI) Body weight Systolic And Diastolic Provider Name and Address Organization Details Last Updated DateTime 2 149.86 cm 88 /min 97.16 [degF] 20.6 kg/m2 77016.4 2 g 98/60 mm[Hg] Alcira Flaherty MD 2 11:38:02 Social History Question Answer Notes LastModified by Organizat ion Details LastModified Time Tobacco Smoking Status Former Smoker AJAY Mccoyey MD 03/24/2020 11:01:16 Auto Related Injury? No [email or web address] Information not available 03/24/2020 Work Related Injury? No [email or web address] Information not available 03/24/2020 Sex: Female Functional Status Question Answer Note LastModified by Organizat ion Details LastModified Time What is your level of alcohol consumption? Occasional [email or web address] Information not available 03/24/2020 Are you currently employed? No [email or web address] Information not available 03/24/2020 Mental Status None recorded. Family History Relationship Description Onset Age of this Age Resolved Age Notes LastModified by Organization Details LastModified Time Mother Suicide [email or web address] Not avail able 03/24/2020 10:59:57 Father Heart failure [email or web address] Not available 11:00:12 Unspecified Relation Kidney disease [email or web address] Not available 11:00:56 Medical History Condition Response Anxiety Disorder Y Diabetes N Bleeding Disorder N Arthritis N Cancer N Thyroid Problems N Stroke N Asthma N Depression N Liver Disease / Hepatitis N High Cholesterol N Hepatitis N Heart Disease N Fibromyalgia N Osteoporosis N Kidney Disease N Gynecological HistoryNo gynecological history recorded. Obstetrics History GPAL:G 0 P 0 0 0 0 Past Encounters Encounter ID Performer Location Encounter Start Date Encounter Closed Date Diagnosis/Indication Diagnosis SNOMED-CT Code Diagnosis ICD10 Code Diagnosis Note [id number] Antony Flaherty MD MAIN OFFICE [address] [place] [address] [address] [place] [address] 03/24/2020 10:40:30 03/24/2020 11:56:14 Chronic pain syndrome 574481483 G89.4 Pain of bi lateral hip joints 4497563527 1223838 M25.559 Thigh pain 08607717 M79. 659 Myofascial pain 81283112 9 M79.18 Persistent insomnia 1919 91514 G47.09 Mental hea [facility] screening assessment 077597951 Z13.30 [id number] Antony Flaherty MD MAIN OFFICE [address] [place] [address] [address] [place] [address] 03/31/2020 09:56:02 04/02/2020 18:02:02 Chronic pain syndrome 838564811 G89.4 Pain of bi lateral hip joints 8832168724 9202158 M25.559 Thigh pain 96149123 M79. 659 Myofascial pain 99101548 9 M79.18 Persistent insomnia 1918 52348 G47.09 Mental hea lt screening assessment 890389629 Z13.30 Pain in left knee 257377 5623 41237 M25.562 [id number] Antony Flaherty MD [facility] [address] [place] [address] [address] [place] [address] 04/08/2020 10:24:09 04/09/2020 17:53:51 Lumbar radiculopathy 404330592 M54.16 [id number] Antony Flaherty MD MAIN OFFICE [address] [facility] [address] [place] [address] 04/21/2020 11:09:01 04/21/2020 12:15:48 Chronic pain syndrome 723490433 G89.4 Pain of bi lateral hip joints 0842685467 1576471 M25.559 Thigh pain 36212262 M79. 659 Myofascial pain 06609858 9 M79.18 Persistent insomnia 1918 99846 G47.09 Mental hea [facility] screening assessment 430517565 Z13.30 Pain in left knee 532559 4228 32609 M25.562 Osteoarthr itis of left knee joint 4900246316 60964 M17.12 [id number] Antony Flaherty MD [facility] [address] [facility],[address] [address] 04/29/2020 11:04:45 04/30/2020 14:40:26 Lumbar radiculopathy 988808442 M54.16 Degenerati on of lumbar intervertebral disc 37503596 M51.36 [id number] Antony Flaherty MD MAIN OFFICE [facility] [facility] [address] [place] [address] 08/18/2020 11:45:28 08/18/2020 12:51:04 Chronic pain syndrome 038323666 G89.4 Pain of bi lateral hip joints 4233471328 6278011 M25.559 Thigh pain 35586032 M79. 659 Myofascial pain 32759955 9 M79.18 Persistent insomnia 1918 08616 G47.09 Mental hea lth screening assessment 103719531 Z13.30 Pain in left knee 821472 6775 55684 M25.562 Osteoarthr itis of left knee joint [id number] 14538 M17.12 6562 Antony Flaherty MD MAIN OFFICE [address] [place] [address] [address] [place] [address] 09/18/2020 11:43:55 09/29/2020 18:25:39 Chronic pain syndrome [id number] G89.4 Pain of bi lateral hip joints [id number] 5334258 M25.559 Thigh pain 40207584 M79. 659 Myofascial pain 16799197 9 M79.18 Persistent insomnia 1919 40427 G47.09 Mental hea lth screening assessment 821773399 Z13.30 Pain in left knee 434023 8798 12670 M25.562 Osteoarthr itis of left knee joint 0176195128 97206 M17.12 9545 Antony Flaherty MD MAIN OFFICE [address] [place] [address] [address] [place] [address] 01/23/2021 12:38:30 01/23/2021 13:08:26 Chronic pain syndrome 894880785 G89.4 Pain of bi lateral hip joints 7864243385 2322928 M25.559 Thigh pain 67246024 M79. 659 Myofascial pain 15177807 9 M79.18 Mental hea lth screening assessment 935252452 Z13.30 Pain in left knee 352502 3212 92222 M25.562 Osteoarthr itis of left knee joint 0344394083 81523 M17.12 Primary insomnia 4177040 F51.01 9824 Antony Flaherty MD [facility] [address] [facility] [address] [place] [address] 02/03/2021 12:44:51 02/04/2021 12:20:47 Lumbar radiculopathy 582130031 M54.16 Degenerati on of lumbar intervertebral disc 38050589 M51.36 97526 Antony Flaherty MD MAIN OFFICE [address] [place] [address] [place] [address] 08/06/2021 15:41:49 08/06/2021 16:52:23 Chronic pain syndrome 400610243 G89.4 Pain of bi lateral hip joints 2715536670 3823807 M25.559 Thigh pain 20529440 M79. 659 Myofascial pain 75604305 9 M79.18 Pain in left knee 928293 7221 75679 M25.562 Osteoarthr itis of left knee joint 8162342468 49208 M17.12 Primary insomnia 1697551 F51.01 Mental hea lt screening assessment 838839890 Z13.30 Osteoarthr osis of the carpometacarpal joint of the thumb 77172459 M18.9 57801 Antony Flaherty MD MAIN OFFICE [address] [place] [address] DR [address] [place] [address] 10/14/2021 10:35:40 10/14/2021 11:29:50 Chronic pain syndrome 821919261 G89.4 Pain of bi lateral hip joints 4237360500 4239439 M25.559 Thigh pain 69065792 M79. 659 Myofascial pain 98594099 9 M79.18 Pain in left knee 797777 4094 39531 M25.562 Osteoarthr itis of left knee joint 4441578914 59162 M17.12 Primary insomnia 8316993 F51.01 [facility] screening assessment 241210713 Z13.30 Osteoarthr osis of the carpometacarpal joint of the thumb 22179084 M18.9 40068 Antony Flaherty MD MAIN OFFICE [address] [place] [address] [address] [place] [address] 12/23/2021 11:12:46 12/23/2021 12:05:12 Chronic pain syndrome 622573781 G89.4 Pain of bi lateral hip joints 7712518267 2235697 M25.559 Thigh pain 39616145 M79. 659 Myofascial pain 36840129 9 M79.18 Pain in left knee 107050 2561 20398 M25.562 Osteoarthr itis of left knee joint 0727625314 95921 M17.12 Primary insomnia 0863418 F51.01 Mental hea lt screening assessment 022727514 Z13.30 Osteoarthr osis of the carpometacarpal joint of the thumb 67783159 M18.9 64124 [facility] [address] [facility] [address] [place] [address] 01/19/2022 12:18:07 01/28/2022 10:24:36 Lumbar radiculopathy 415633954 M54.16 76549 Antony Flaherty MD MAIN OFFICE [address] [place] [address] [address] [place] [address] 10/14/2022 16:10:45 10/14/2022 17:55:55 Chronic pain syndrome 691367544 G89.4 Pain of bi lateral hip joints 7959970862 2120864 M25.559 Thigh pain 16607882 M79. 659 Myofascial pain 72707471 9 M79.18 Pain in left knee 096378 0751 69845 M25.562 Osteoarthr itis of left knee joint 4501315024 23055 M17.12 Primary insomnia 2823450 F51.01 Mental [facility] screening assessment 532463798 Z13.30 Osteoarthr osis of the carpometacarpal joint of the thumb 13395010 M18.9 06741 MD [facility] [place] [address] [facility] [address] [place] [address] 11/02/2022 15:53:25 11/09/2022 14:18:58 Lumbar radiculopathy 851598611 M54.16 Health Concerns Section Related Observation LastModified by Organization Detai ls LastModified Time None Recorded Concern Status LastModified by Organization Details LastModified Time None Recorded Advance Directives Directive None Recorded Payers Insurance Date Sequence Insurance Name Policy Number Policy Worrell Covered Member ID Worrell Member ID Guarantor Name 09/18/2020 1 [id number] [id number] Jean Pierre Galloway [id number] Lori Galloway 01/29/2021 2 [facility] (MEDICARE SUPPLEMENT) Lori Galloway [id number] Lori Galloway 10/30/2022 1 [place] Lori Galloway [id number] Lori Pina Notes Date Note Type Note Provider Name and Address Organization Details Recorded Time 10/14/2021 text/html Patient presents for evaluation of hips and thigh pain. Pain status Location of pain: as above Associated numbness/tingling: yes Any radiation of pain:yes Current pain: 1/10 Range over last 2 weeks 0/10-8/10 Quality:aching Pain worsened by:standing /exercise/bending/tw isting Pain improved by:cold Goals for pain management: improved ambulation/function/ ability to work/ability to perform ADL's/ability to enjoy time with family Comorbidities: OA, former smoker (quit over 30 years ago), h/o allergic bronchitis, possible FM, microscopic colitis, seizure d/o (under control for 20+ years). Therapies trialed: Past injections/procedure s: yes Spine (or other pertinent) surgery: no Physical Therapy: no Occupational Therapy: no Aquatic Therapy: no Massage Therapy: no TENS unit: no Chiropractic treatments: no Acupuncture: no Biofeedback/hypnosis /mindfulness: no Mental health counseling/CBT: no Medication monitoring: Any euphoria or feelings of being addicted to pain medication: no Any suicidal/homicidal ideation: no Med agreement on file, PDMP query at today's visit - appropriate, UDS not needed. 03/24/20 SOAPP score is 17. Pertinent Medications tried: keppra, gabapentin, ibuprofen, tylenol, aleve, pennsaid Procedure history: RFA in the past - unpleasant experience for her Bilateral GTB injection - possible short term belief09/05/18 - C5-6 and C6-7 intraarticular facet injections by Dr[address] Jose Kerr - % reduction in pain 04/08/20 - bilateral L3-4 and L4-5 TFESI - 100% reduction in pain for 2 days then 60% reduction in pain ongoing. 04/21/20 - left knee injection - nearly 100% reduction in pain for 3.5 months 04/29/20 - bilateral L3-5 and L4-5 TFESI - 100% reduction in pain for right side, 100% reduction in pain on left for 4-5 weeks then waning benefit 08/18/20 - left knee injection - 75-80% reduction in pain01/23/21 - left knee injection - pending relief02/03/21 - bilateral L3-4 and L4-5 TFESI - 80% reduction in pain08/06/21 - left knee injection Antony Flaherty MD [address] [facility] [address], [place], [address], [facility] - Barrera Flaherty MD 10/14/2021 11:30:02 12/23/2021 text/html Patient presents for evaluation of hips and thigh pain. Pain status Location of pain: as above Associated numbness/tingling: yes Any radiation of pain:yes Current pain: 1/10 Range over last 2 weeks 05/25-09/22 Quality:burning/ting ling Pain worsened by:lying down Pain improved by:n/a Goals for pain management: improved ambulation/function/ ability to work/ability to perform ADL's/ability to enjoy time with family Comorbidities: OA, former smoker (quit over 30 years ago), h/o allergic bronchitis, possible FM, microscopic colitis, seizure d/o (under control for 20+ years). Therapies trialed: Past injections/procedure s: yes Spine (or other pertinent) surgery: no Physical Therapy: no Occupational Therapy: no Aquatic Therapy: no Massage Therapy: no TENS unit: no Chiropractic treatments: no Acupuncture: no Biofeedback/hypnosis /mindfulness: no Mental health counseling/CBT: no Medication monitoring: Any euphoria or feelings of being addicted to pain medication: no Any suicidal/homicidal ideation: no Med agreement on file, PDMP query at today's visit - appropriate, UDS not needed. 03/24/20 SOAPP score is 17. Pertinent Medications tried: keppra, gabapentin, ibuprofen, tylenol, aleve, pennsaid Procedure history: RFA in the past - unpleasant experience for her Bilateral GTB injection - possible short term belief09/05/18 - C5-6 and C6-7 intraarticular facet injections by Dr. Jose Kerr - % reduction in pain 04/08/20 - bilateral L3-4 and L4-5 TFESI - 100% reduction in pain for 2 days then 60% reduction in pain ongoing. 04/21/20 - left knee injection - nearly 100% reduction in pain for 3.5 months 04/29/20 - bilateral L3-5 and L4-5 TFESI - 100% reduction in pain for right side, 100% reduction in pain on left for 4-5 weeks then waning benefit 08/18/20 - left knee injection - 75-80% reduction in pain01/23/21 - left knee injection - pending relief02/03/21 - bilateral L3-4 and L4-5 TFESI - 80% reduction in pain08/06/21 - left knee injection Antony Flaherty MD [address] [facility] [address], [place], [address], [place] - Barrera Flaherty MD 12/23/2021 12:45:32 10/14/2022 text/html Patient presents for evaluation of hips and thigh pain. Pain status Location of pain: as above Associated numbness/tingling: yes Any radiation of pain:yes Current pain: 0/10 Range over last 2 weeks 05/25-09/22 Quality:burning/ting ling Pain worsened by:lying down Pain improved by:n/a Goals for pain management: improved ambulation/function/ ability to work/ability to perform ADL's/ability to enjoy time with family Comorbidities: OA, former smoker (quit over 30 years ago), h/o allergic bronchitis, possible FM, microscopic colitis, seizure d/o (under control for 20+ years). Therapies trialed: Past injections/procedure s: yes Spine (or other pertinent) surgery: no Physical Therapy: no Occupational Therapy: no Aquatic Therapy: no Massage Therapy: no TENS unit: no Chiropractic treatments: no Acupuncture: no Biofeedback/hypnosis /mindfulness: no Mental health counseling/CBT: no Medication monitoring: Any euphoria or feelings of being addicted to pain medication: no Any suicidal/homicidal ideation: no Med agreement on file, PDMP query at today's visit - appropriate, UDS not needed. 03/24/20 SOAPP score is 17. Pertinent Medications tried: keppra, gabapentin, ibuprofen, tylenol, aleve, pennsaid, trazodone, melatonin Procedure history: RFA in the past - unpleasant experience for her Bilateral GTB injection - possible short term belief09/05/18 - C5-6 and C6-7 intraarticular facet injections by Dr. Jose Kerr - % reduction in pain 04/08/20 - bilateral L3-4 and L4-5 TFESI - 100% reduction in pain for 2 days then 60% reduction in pain ongoing. 04/21/20 - left knee injection - nearly 100% reduction in pain for 3.5 months 04/29/20 - bilateral L3-5 and L4-5 TFESI - 100% reduction in pain for right side, 100% reduction in pain on left for 4-5 weeks then waning benefit 08/18/20 - left knee injection - 75-80% reduction in pain01/23/21 - left knee injection - pending relief02/03/21 - bilateral L3-4 and L4-5 TFESI - 80% reduction in pain08/06/21 - left knee injection01/19/22 - bilateral L3-4 and L4-5 TFESI - 80% reduction in pain Antony Flaherty MD [address] [facility] [address], [place], [address], [place] - Barrera Flaherty MD 10/14/2022 18:12:33 OBGyn Episode No OBEpisode recorded.
--- OUTSIDE RECORDS SUMMARY | 2024-12-04 11:03 | XMS_ITS | Data Portability ---
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 I recommend limiting time on the commode, continuing current bowel regimen, and RBL. SHe needs prior authorization, so plan to schedule banding when it is approved. 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 I recommend limiting time on the commode, continuing current bowel regimen, f.u 2 weeks. 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 Plan for f/u prn for hemorrhoid sx. We had a long discussion regarding her concern for fecal incontinence and I suggested kegal exercises and if there is worsening of her sx we will have her try pelvic floor PT or could even discuss SNS. F/u prn. 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 Previous discussion regarding her concern for fecal incontinence and I suggested kegal exercises and if there is worsening of her sx we will have her try pelvic floor PT or could even discuss SNS. follow up 1 year. Not available 03/05/2022 22:38:36 Plan of Treatment Reminders Order Date Submit Date Provider Last Modified By Organization Details Last Modified Time Details Appointments None recorded. Lab None recorded. Referral None recorded. Procedures None recorded. Surgeries None recorded. Imaging None recorded. Medication Orders budesonide DR-ER 9 mg tablet,chuck yed and extended release 2021 022 [facility], [address] [facility], [place], [address], 22:39:32 Patient TargetsNo targets recorded. Patient Instructions Encounter Date Encounter Id Patient Instructions Last Modified By Organization Details Last Modified Time 10/19/2019 [id number] hemorrhoids: car e instructions [email or web address] Not available 10/19/2019 16:09:39 10/26/2019 [id number] hemorrhoids: car e instructions [email or web address] Not available 10/26/2019 16:01:03 11/22/2019 [id number] hemorrhoids: car e instructions [email or web address] Not available 11/22/2019 11:42:22 03/05/2022 [id number] hemorrhoids: car e instructions Not available 03/05/2022 22:38:38 Reason for Referral None Reported. Problems Name Problem SNOMED Code Status Onset Date Resolution Date Notes Provider Name and Address Organization Details Recorded Time Microscopic colitis 246067941 Active 2019 AJAY Becerra [facility] 0 14:33:40 Seizure 91107664 Active 2019 AJAY Becerra [facility] 0 14:33:55 Endometriosis (clinical) 679343178 Active 2019 AJAY Becerra [place] [facility] 0 14:34:06 Gastroesophage al reflux disease 944948961 Active 2019 Kira ochoa, [facility] 0 14:34:09 Hypercholester olemia 51130064 Active 2019 Kira ochoa, [facility] 0 14:34:16 Problem Notes None recorded. Procedures Surgical History Date Name Laterality Status Provider Name and Address Organization Details Recorded Time 10/26/19 20 Anoscopy completed Kristy Meade [id number] [facility] 10/26/2019 15:59:49 10/26/19 20 Rubber Band Ligation completed Kristy Meade [id number] [facility] 10/26/2019 16:00:07 10/19/19 20 Anoscopy completed Kristy Meade [address] [facility] 10/19/2019 15:18:16 07/25/19 20 Hemorrhoid Banding completed Kasia Benson [facility] 03/05/2022 11:57:42 07/25/19 16 colonoscopy completed Kira Oneal [facility] 10/19/2019 14:33:15 05/16/18 96 hysterectomy completed Kira Oneal [facility] 10/19/2019 14:33:15 denies any prior surgeries completed Kira Oneal [facility] 10/19/2019 14:33:15 Imaging Results None recorded. Procedure Notes None recorded. Medical Equipment None Reported. Allergies Allergen ID Allergen Name Allergen Category Reaction Reaction Severity Criticality Documentation Date Start Date Code Code System Note Provider Name and Address Organization Details Recorded Time 19160120 Flagyl medicatio n Not available Not available Not available 10/19/2019 6 RxNorm Kira ochoa [facility] 0 14:33:13 Medications Name Sig Start Date Stop Date Status Note LastModified by Organization Details LastModified Time amoxicillin 500 mg capsule TAKE 1 CAPSULE BY MOUTH EVERY 8 HOURS UNTIL GONE 03/04 completed Not Available Not Available Not Available [...] DAYS THEN AT BEDTIME FOR 7 DAYS 03/04 completed Not Available Not Available Not Available gabapentin 300 mg capsule TAKE 1 TO 2 CAPSULES BY MOUTH EVERY DAY AT BEDTIME 03/05 completed Not Available Not Available Not Available gabapentin 100 mg capsule TAKE 1 CAPSULE BY MOUTH THREE TIMES DAILY 03/05 completed Not Available Not Available Not Available budesonide DR - ER 3 mg capsule,del ayed,extend ed release TAKE 3 CAPSULES EVERY DAY 2022 active Not Available Not Available Not Avai lable ibuprofen 600 mg tablet TAKE 1 TABLET BY MOUTH EVERY 6 TO 8 HOURS NEEDED FOR PAIN 03/04 completed Not Available Not Available Not Available Vitamin D2 1,250 mcg (50,000 unit) capsule TAKE 1 CAPSULE BY MOUTH TWO TIMES PER WEEK 03/04 completed Not Available Not Available Not Available naproxen 500 mg tablet TAKE 1 TABLET BY MOUTH TWICE DAILY WITH MEALS active Not Available Not Available No t Available amoxicillin 875 mg-potassiu m clavulanate 125 mg tablet TAKE 1 TABLET BY MOUTH TWICE DAILY UNTIL GONE 03/04 completed Not Available Not Available Not Available neomycin 3.5 mg/g-polymy chay B 10,000 unit/g-dexa meth 0.1 % eye oint USE STRIP OF OINTMENT ON LEFT UPPER EYELID (OK TO GET INTO EYE WELL) THREE TIMES DAILY FOR 5 DAYS, TWICE DAILY FOR 5 DAYS, ONCE DAILY FOR 5 DAYS, THEN STOP 03/04 completed Not Available Not Available Not Available moxifloxaci n 0.5 % eye drops INSTILL 1 DROP IN OPERATIVE EYE 4 TIMES DAILY FOR 7 DAYS THEN THREE TIMES DAILY FOR 7 DAYS 03/04 completed Not Available Not Available Not Available rosuvastati n 10 mg tablet TAKE 1 TABLET BY MOUTH ONCE DAILY active Not Available Not Available No t Available rosuvastati n 20 mg tablet TAKE 1 TABLET BY MOUTH ONCE DAILY FOR CHOLESTER OL active Not Available Not Available No t Available budesonide DR-ER 9 mg tablet,chuck yed and extended release Take 1 tablet every day by oral route for 90 days. 2021 active Not Available Not Available Not Avai lable Prolensa 0.07 % eye drops INSTILL 1 DROP IN OPERATIVE EYE AT BEDTIME FOR 2 WEEKS 03/04 completed Not Available Not Available Not Available Pennsaid 20 mg/gram/act uation (2 %) topical soln in metered-dos e pump active Not Available Not Available Not Available Shingrix (PF) 50 mcg/0.5 mL intramuscul ar suspension, kit INJECT syringe DIRECTED active Not Available Not Available No t Available Vitals Date Recorded Body height Body mass index (BMI) Body weight Heart rate Systolic And Diastolic Provider Name and Address Organization Details Last Updated DateTime 10/19/2019 149.86 cm 19.6 kg/m2 80392.46 g 73 /min 108/69 mm[Hg] Kira Oneal [facility] 10/19/2019 14:30:00 Date Recorded Body height Body mass index (BMI) Body weight Heart rate Systolic And Diastolic Provider Name and Address Organization Details Last Updated DateTime 10/26/2019 149.86 cm 19.8 kg/m2 20356.05 g 79 /min 94/65 mm[Hg] Kira Oneal [facility] 10/26/2019 15:50:17 Date Recorded Body height Body mass index (BMI) Body weight Heart rate Systolic And Diastolic Provider Name and Address Organization Details Last Updated DateTime 11/22/2019 149.86 cm 19.8 kg/m2 51503.05 g 77 /min 96/58 mm[Hg] Kira Oneal [facility] 11/22/2019 11:08:33 Date Recorded Body height Body mass index (BMI) Body weight Provider Name and Address Organization Details Last Updated DateTime 03/05/2022 149.86 cm 19.8 kg/m2 59074.05 g Kasia Benson [facility] 03/05/2022 11:57:20 Social History Question Answer Notes LastModified by [email or web address] Details LastModified Time Tobacco Smoking Status Former Smoker Kira Jm ochoa, [facility] 10/19/2019 14:33:14 How Much Tobacco Do You Chew? None [email or web address] Information not available 10/19/2019 Illicit Drugs No [email or web address] Informati on not available 10/19/2019 At What Age Did You Start Smoking Tobacco? 17 Information not available 03/05/2022 How Much Tobacco Do You Smoke? No [email or web address] Information not available 10/19/2019 How Many Years Have You Smoked Tobacco? 5 Information not available 03/05/2022 Sex: Unknown Functional Status Question Answer Note LastModified by [email or web address] Details LastModified Time What is your level of alcohol consumption? Occasional [email or web address] Information not available 10/19/2019 Mental Status None recorded. Family History Relationship Description Onset Age of this Age Resolved Age Notes LastModified by Organization Details LastModified Time Father Problem Not availa ble 10/19/2019 14:33:13 Medical History Condition Response Coronary Artery Disease N HIV or AIDS N Cancer - Prostate N Other Y Atrial Fibrillation N GERD (Reflux) Y Cancer - Breast N Emphysema N COPD N Blood Clots N Hypothyroidism N Hypertension (High Blood Pressure) N Anesthesia Problems N Bleeding Tendency N CHF (Congestive Heart Failure) N Cancer - Stomach N Arthritis Y Diverticular Disease N Cancer - Rectal N Stroke N Crohn's Disease N Endometriosis Y IBS (Irritable Bowel Syndrome) N High Cholesterol Y Organ Transplant N Cardiac Stents N Cancer - Kidney N Cancer - Ovarian N Cancer - Colon N Colon Polyps N Gastritis N Cancer - Uterine (Endometrial) N Diabetes N No Medical History Y Heart Murmur N Heart Attack N Asthma N Seizures Y Ulcerative Colitis N Sleep Apnea N Hepatitis N Cancer - Other N Gynecological HistoryNo gynecological history recorded. Obstetrics History GPAL:G 0 P 0 0 0 0 Past Encounters Encounter ID Performer Location Encounter Start Date Encounter Closed Date Diagnosis/Indication Diagnosis SNOMED-CT Code Diagnosis ICD10 Code Diagnosis Note [id number] [facility] [address] [place] [address] [place] [address] 10/19/2019 14:14:51 10/19/2019 14:56:48 Internal hemorrhoids 72850057 K64.8 External hemorrhoids 239 58604 K64.4 Microscopic colitis 2357 48650 K52.839 Arthritis 2965323 M19.90 Endometrio sis (clinical) 102246277 N80.9 Hypercholesterolemia 136 77155 E78.00 Seizure 65997238 R56.9 Gastroesop hageal reflux disease without esophagitis 035512427 K21.9 [id number] [facility] [address] [place] [address] [place] [address] 10/26/2019 15:43:32 10/26/2019 16:14:27 Internal hemorrhoids 47616684 K64.8 External hemorrhoids 239 03308 K64.4 Microscopic colitis 2357 75839 K52.839 Arthritis 2849798 M19.90 Endometrio sis (clinical) 978246280 N80.9 Hypercholesterolemia 136 24397 E78.00 Seizure 37189511 R56.9 Gastroesop hageal reflux disease without esophagitis 327234726 K21.9 [id number] Kristy Meade [facility] [address] [facility] [address] [place] [address] 11/22/2019 11:01:20 11/22/2019 11:20:56 Internal hemorrhoids 80007990 K64.8 External hemorrhoids 239 04162 K64.4 Microscopic colitis 2357 99773 K52.839 Arthritis 0836227 M19.90 Endometrio sis (clinical) 972347098 N80.9 Hypercholesterolemia 136 12298 E78.00 Seizure 58588082 R56.9 Gastroesop hageal reflux disease without esophagitis 824968952 K21.9 [id number] MD NGUYEN Gonzalez Office [address] [facility] [address] [place] [address] 03/05/2022 11:39:50 03/05/2022 12:25:01 Internal hemorrhoids 22030446 K64.8 External hemorrhoids 239 52206 K64.4 Microscopic colitis 2357 52090 K52.839 Arthritis 3561633 M19.90 Endometrio sis (clinical) 984999883 N80.9 Hypercholesterolemia 136 71942 E78.00 Seizure 51905683 R56.9 Gastroesop hageal reflux disease without esophagitis 294847934 K21.9 Health Concerns Section Related Observation LastModified by Organization Detai ls LastModified Time None Recorded Concern Status LastModified by Organization Details LastModified Time None Recorded Advance Directives Directive None Recorded Payers Insurance Date Sequence Insurance Name Policy Number Policy Worrell Covered Member ID Worrell Member ID Guarantor Name 09/25/2023 2 [employer] [employer] (MEDICARE SUPPLEMENT) Irma Silvana [id number] Irma [place] 09/25/2023 1 [place] Irma Yair Pina [id number] Irma Pina 10/09/2020 1 [place] [id number] Jean Pierre Galloway [id number] Irma [place] Notes Date Note Type Note Provider Name and Address Organization Details Recorded Time 10/19/2019 text/html 64y/o female wit h history of microscopic colitis on budesonide and several other natural supplements including a probiotic who is presenting for evaluation of her hemorrhoids. She has tried to wean off budesonide in the past with resulting diarrhea and is taking it 3 times a day. During episodes of diarrhea, her hemorrhoids flare with prolapse and bleeding. She denies sharp pain with bms. She does have blood in her stool that is bright red and when she wipes.Her last colonoscopy was 2015 and she has never had polyps. She was suppose to repeat in 2025. Kristy Meade [address] [facility], [facility] [address], [place], [place], [address] [place] [address], [facility] 10/19/2019 16:10:07 10/26/2019 text/html Patient here for RBL. Nothing has changed since her previous visit. Kristy Meade [address] [facility], [facility] [address], [place], [place], [address] [place] [address], [facility] 10/26/2019 16:01:32 11/22/2019 text/html Patient had much improvement after rubber banding. She denies current hemorrhoid bleeding, still just a small amount of external hemorrhoid tissue noted, but no internal prolapse.She notes during episodes of colitis she often has concern for fecal incontinence. Kristy Meade [id number] [facility], [facility] [address], [place], [address], [facility] 11/22/2019 11:42:51 03/05/2022 text/html 66y/o female presenting with history of lymphocytic colitis on budesonide. She has been unable to wean herself off of it. She notes severe cramping and diarrhea that can last for quite a long while during weaning trials. When these episodes happen she has urgency and some fecal incontinence. Kristy Meade MD [address] [facility], [place], [address], [facility] 03/05/2022 22:39:37 OBGyn Episode No OBEpisode recorded.
--- OUTSIDE RECORDS SUMMARY | 2024-12-04 11:03 | XMS_ITS ---
Author Organization [facility] Address [address] [id number] Care Team Providers Care Collections Associate Name Role Phone Vikash Taylor MD Primary Care Provider [phone] Hellen Spencer Unavailable Unavailable Clinical Accounts Clerk Program Status:Identified (Enrolling) Start date:11/28/2024 Overview This episode type is for outpatient Clinical Accounts Clerk enrolling patients in their program. Case Team Name Relationship Phone Hellen Spencer(Responsible Staff) Clinical Jesus turner Financial Quantitative Analyst Continued Care and Services Coordination
--- OUTSIDE RECORDS SUMMARY | 2024-12-04 11:04 | XMS_ITS | Encounter Summary ---
Author Organization Healthcare Address [address] [place] [address] Care Team Providers Care Green Hide Inspector Name Role Phone Vikash Taylor MD Primary Care Provider [phone] Hellen Spencer Unavailable Unavailable Reason for Visit * Reason Comments Health Maint. Encounter Details Date Type Department Care Team (Late st Contact Info) Description 12/03/2024 Patient Outreach POPULATION HEALTH [address] [facility] [address] [place] [address] Hellen Spencer Health Maint. Social History Tobacco Use Types Packs/Day Years [...] any time in the past 12 m [facility], were you homeless or living in a nursing home (including now)? No 11/24/2024 Utilities Answer Date Recorded In the past 12 months has th e [employer], gas, oil, or water [employer] threatened to shut off services in your home? No 11/24/2024 Comments No Sex and Gender Information Value Date Recorded Sex Assigned at Not on file Legal Sex Female 7:31 AM EDT Gender Identity Not on file Sexual Orientation Not on file documented as of this encounter Miscellaneous Notes * Progress Notes - Hellen Spencer - 12/03/2024 8:41 AM EDT Records Request Chart reviewed on: 12/03/2024 By Population Health Staff: Hellen Spencer Records Request Needed: No Care Gap Action Plan Outreach completed: Follow-up. Outcome: Received records. Sent records to Regulatory line Pending - Currently in Clinic OnBase Process Follow-up scheduled for: 7 days documented in this encounter Plan of Treatment Upcoming Encounters Date Type Department Care Team (Late st Contact Info) Description 12/18/2024 12:20 PM EDT Office Visit [facility] [address] [place] [address] Vikash Taylor MD [address] [place] [address] 01/18/2025 10:00 AM EDT Office Visit [facility] [employer] [facility] [address] [facility], [address] [place] [address] Karen Pearce PA [address] [place] [address] documented as of this encounter [...] documented as of this encounter Care Teams Green Hide Inspector Relationship Specialty Start Date End Date Vikash Taylor MD [address] [place] [address] PCP - General Family Medicine 11/27/24 Hellen Spencer Clinical [employer] 11/28/24 documented as of this encounter
--- OUTSIDE RECORDS SUMMARY | 2024-12-04 11:04 | XMS_ITS | Clinical Summary ---
Author Organization [facility] Address [address] [place] [address] Care Team Providers Care Terminal Gauger Name Role Phone Vikash Taylor MD Primary Care Provider [phone] Hellen Spencer Unavailable Unavailable Allergies Active Allergy Reactions Criticality Noted Date Comments Metronidazole Hives,Rash High 06/17/2016 Vaginal cream Medications denosumab (Prolia) 60 MG/ML injection Inject 1 mL under the skin every 6 months. 5 Active Diclofenac Sodium (Pennsaid) 2 % solution Apply topically as needed. Active dicyclomine (Bentyl) 10 MG capsule Take 1 capsule by mouth as needed. 5 Active gabapentin (Neurontin) 400 MG capsule Take 2 capsules by mouth 1 time each day. 5 Active Procto-Med HC 2.5 % rectal cream Insert 1 Application into the rectum as needed. 5 Active levETIRAcetam (Keppra) 500 MG tablet Take 1 tablet by mouth twice a day. 5 Active omeprazole (PriLOSEC) [address] capsule Take 1 capsule by mouth 2 times a day. 5 Active pregabalin (Lyrica) 50 MG capsule Take 2 capsules by mouth nightly. 5 Active rosuvastatin (Crestor) 20 MG tablet Take 1 tablet by mouth nightly. 5 Active traZODone (Desyrel) 50 MG tablet Take 1-2 tablets by mouth at night as needed for sleep. 5 Active Active Problems Problem Noted Date Diagnosed Date Primary insomnia 11/27/2024 Overview (11/27/2024): since childhood, increased with age, and became unmanageable in early adulthood. Started with over the counter, but have been prescribed various medications since I was in my late 30's or early 40's. Is exacerbated by pain. 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 PLAN: Was diagnosed in 2016.. Pt will continue care with Dr. Yeni Evans. Nonintractable epilepsy with complex partial sei zures 09/06/2016 Dry eyes 07/01/2016 Overview (11/27/2024): chronic, uncontrolled. Will refer to ophthalmology Mixed hyperlipidemia 07/01/2016 Overview (11/27/2024): chronic, uncontrolled. Not on meds. Will check lipid panel. Seizure disorder 07/01/2016 Overview (11/27/2024): will refer to neurology; continue dilantin Arthralgia 07/01/2016 Overview (11/27/2024): chronic, uncontrolled. will check labs. check arthritis labs. consider rheumatology referral. Microscopic colitis 05/16/2015 Overview (11/27/2024): Pt was diagnosed in 2016 by GI. Her sx were abdominal discomfort and diarrhea. Colonoscopy was done in 2015. She was started on Budesonide in 2015. It has been tapered from 9 mg a day to 6 mg a day successfully w/o a flare. Last Assessment & Plan: ASSESSMENT: The patient's condition is improved. PLAN: Pt has been advised to continue a slow taper. Reduce by 1 capsule per week for 3 weeks before further taper down. Pt has been advised to see GI at least once in 6-12 mo. I will be happy to help her with tapering Budesonide.Pt has been warned that during taper, she may have a flare of colitis. I advised a very slow taper over 6 mo. Age-related osteoporosis wit hout current pathological fracture 11/06/2014 Overview (11/27/2024): OSTEOPOROSIS was diagnosed in 2013. Pt was started on Fosamax for 18 mo.It was stopped due to esophageal S/E. Last Assessment & Plan: ASSESSMENT: The patient's condition is deteriorated. PLAN: Calcium [id number] mg/day and Vit D at least 800 IU daily. Continue walking and weight bearing exercises. Will refer to Endo to start Prolia. Arthritis 05/16/2014 Overview (11/27/2024): hands, knees, spine Resolved Problems Problem Noted Date Diagnosed Date Resolved Date Lateral epicondylitis 01/09/20182024 Overview (11/27/2024): Last Assessment & Plan: ASSESSMENT: The patient's condition is unchanged. PLAN: She has tried all of the symptomatic appropriate treatments and I will get her in with Dr. Macdonald for further evaluation. I suspect he may also be able to help with her neck as well if this were to worsen. Encounters Date Type Department Care Team Description 12/03/2024 Patient Outreach [facility] [address], [address] [place] [address] Hellen Spencer [facility]. 11/29/2024 Results Follow-Up [facility] [address] [place] [address] Vikash Taylor MD 11/28/2024 Patient Outreach [facility] [address] [place] [address] Hellen Spencer [facility]. (Records request) 11/27/2024 10:00 AM EDT Office Visit [facility] [place] [address] Vikash Taylor MD Primary insomnia (Primary Dx); Gastroesophageal reflux disease, unspecified whether esophagitis present; Mixed hyperlipidemia; Lumbar radiculopathy, chronic; Nonintractable epilepsy with complex partial seizures (CMS/HCC); Vitamin D deficiency 11/27/2024 Travel 11/20/2024 Travel from Last 3 Months Immunizations Immunization Administration Dates Next Due Influenza, High-dose, Split Virus, Trivalent, Injectable, preservative free 03/26/2024 Influenza, injectable, quadrivalent 01/25/2020 Pneumococcal Conjugate PCV 13 12/05/2020 Tdap 12/05/2020,07/19/2011 Zoster, Recombinant 10/16/2018,08/17/2018 Family History Medical History Relation Name Comments Hyperlipidemia Daughter Lianna Arthritis Father Leo Heart failure Father Leo Hyperlipidemia Father Leo Osteoporosis Father Leo No Known Problems Maternal Grandfather No Known Problems Maternal Grandmother Depression Mother Odette Hyperlipidemia Mother Odette No Known Problems Paternal Grandfather Osteoporosis Paternal Grandmother Arthritis Sister 1 Kate Autoimmune disease Sister 1 Kate Vision loss Sister 1 Kate Diabetes Sister 2 Barbara Obesity Sister 2 Barbara No Known Problems Sister 3 Antonia Hyperlipidemia Son Relation Name Status Comments Daughter Lianna Alive Father Leo Maternal Grandfather Maternal Grandmother Mother Odette Paternal Grandfather Paternal Grandmother Sister 1 Kate Alive Sister 2 Barbara Alive Sister 3 Antonia Alive Son Alive Social History Tobacco Use Types Packs/Day Years [...] any time in the past [address], were you homeless or living in a [...] on file Sexual Orientation Not on file Last Filed Vital Signs Vital Sign Reading [...] Mass Index 20.4 11/27/2024 10:08 AM EDT Plan of Treatment Upcoming Encounters Date Type Department Care Team (Late st Contact Info) Description 12/18/2024 12:20 PM EDT Office Visit [facility] [address] [place] [address] Vikash Taylor MD [address] [place] [address] 01/18/2025 10:00 AM EDT Office Visit [facility] [address], [address] [place] [address] Karen Pearce PA [address] [place] [address] Health Maintenance Due Date Last Done Comments [facility]-Hepatitis C Screening 1955 [facility]-Medicare Annual Wellness (AWV) 1955 [facility]-Infant/Child/Adol SDOH Screenings 1955 [id number] Vaccine (#1) 09/08/1960 CT Colonography 09/08/2000 Colonoscopy 09/08/2000 FIT-DNA 09/08/2000 FIT 09/08/2000 FOBT 09/08/2000 Sigmoidoscopy 09/08/2000 [facility]-Colorectal Cancer Screening 09/08/2000 [facility]-RSV Vaccine: 60+ Years o r (1 - Risk 60-74 years 1-dose series) 2015 [facility]-Pneumococcal Vaccine: 50 + Years (2 of 2 - PPSV23) 12/05/2021 12/05/2020 [facility]-Bone Density Scan 12/23/2022 12/23/2021 [facility]-Breast Cancer Screening 12/17/2023 08/0 07/2021, 01/23/2018 [facility]-Influenza Vaccine (#1) 01/14/202503/26, 01/25/2020 [facility]- SDOH Screenings 05/27/2025 [facility]-Adult SDOH Screenings 05/27/2025 11/24/2024 [facility]-Depression Screening 11/27/2025 025, 11/27/2024 [facility]-DTaP,Tdap,and Td Vaccine s (3 - Td or Tdap) 12/05/2030 12/05/2020, 07/19/2011 [facility]-Zoster Vaccines Completed 10/16/2018, 08/17/2018 HPV Vaccines Aged Out No longer eligi ble based on patient's age to complete this topic [facility]-HIB Vaccines Aged Out No longer e ligible based on patient's age to complete this topic [facility]-Hepatitis A Vaccines Aged Out No longer eligible based on patient's age to complete this topic [facility]-IPV Vaccines Aged Out No longer e ligible based on patient's age to complete this topic [facility]-Rotavirus Vaccines Aged Out No lo nger eligible based on patient's age to complete this topic Procedures Procedure Name Priority Date/Time Associated Diagnosis Comments LIPID PROFILE, PLASMA Routine 11/27/2024 11:51 AM EDT Mixed hyperlipidemia VITAMIN D 25 HYDROXY Routine 11/27/2024 11:51 AM EDT Vitamin D deficiency CBC WITH AUTO DIFFERENTIAL Routine 11/27/2024 11:51 AM EDT Primary insomnia Gastroesophageal reflux disease, unspecified whether esophagitis present COMPREHENSIVE METABOLIC PANEL, PLASMA Routine 11/27/2024 11:51 AM EDT Gastroesophageal reflux disease, unspecified whether esophagitis present Mixed hyperlipidemia from Last 3 Months Results * Vitamin D 25 Hydroxy (11/27/2024 11:51 AM EDT) Vitamin D 25 Hydroxy 34.7 20.0 - 80.0 ng/mL 11/27/2024 6:59 PM EDT [facility] Blood Venous blood specimen / Unknown Venipuncture / Unknown 11/27/2024 11:51 AM EDT 11/27/2024 11:51 AM EDT Narrative [facility] - 11/27/2024 6:59 PM EDT Testing performed on [employer], standardized against NIST SRM 2972. When testing [...] MD LAB BLOOD ORDERABLES Final Res ult [facility] [address] [place] [address] * (ABNORMAL) CBC and Differential (11/27/2024 11:51 AM EDT) WBC Count 8.91 3.70 - 10.30 10*3/uL LAB HEMATOLOGY METHOD 11/27/2024 6:12 PM EDT [facility] RBC Count 4.60 3.90 - 5.20 10*6/uL LAB HEMATOLOGY METHOD 11/27/2024 6:12 PM EDT [facility] HGB 13.8 11.2 - 15.7 g/dL LAB HEMATOLOGY METHOD 11/27/2024 6:12 PM EDT [facility] HCT 44.3 34.0 - 45.0 % LAB HEMATOLOGY METHOD 11/27/2024 6:12 PM EDT [facility] Platelet Count 343 155 - 369 10*3/uL LAB HEMATOLOGY METHOD 11/27/2024 6:12 PM EDT [facility] MCV 96 79 - 98 fL LAB HEMATOLOGY METHOD 11/27/2024 6:12 PM EDT [facility] MCH 30.0 26.0 - 32.0 pg LAB HEMATOLOGY METHOD 11/27/2024 6:12 PM EDT [facility] MCHC 31.2 30.7 - 35.5 g/dL LAB HEMATOLOGY METHOD 11/27/2024 6:12 PM EDT [facility] RDW 14.6(H) 11.5 - 14.5 % LAB HEMATOLOGY METHOD 11/27/2024 6:12 PM EDT [facility] MPV 10.4 8.8 - 12.5 fL LAB HEMATOLOGY METHOD 11/27/2024 6:12 PM EDT [facility] nRBC 0.0 <=0.0 per 100 WBCs LAB HEMATOLOGY METHOD 11/27/2024 6:12 PM EDT [facility] Differential Type Automated LAB HEMATOLOGY METHOD 11/27/2024 6:12 PM EDT [facility] Neutrophils % 58 % LAB HEMATOLOGY METHOD 11/27/2024 6:12 PM EDT [facility] Lymphocytes % 28 % LAB HEMATOLOGY METHOD 11/27/2024 6:12 PM EDT [facility] Monocytes % 11 % LAB HEMATOLOGY METHOD 11/27/2024 6:12 PM EDT [facility] Eosinophils % 1 % LAB HEMATOLOGY METHOD 11/27/2024 6:12 PM EDT [facility] Basophils % 1 % LAB HEMATOLOGY METHOD 11/27/2024 6:12 PM EDT [facility] Immature Granulocytes % 1 % LAB HEMATOLOGY METHOD 11/27/2024 6:12 PM EDT [facility] Neutrophils Absolute 5.21 1.60 - 6.10 10*3/uL LAB HEMATOLOGY METHOD 11/27/2024 6:12 PM EDT [facility] Lymphocytes Absolute 2.45 1.20 - 3.90 10*3/uL LAB HEMATOLOGY METHOD 11/27/2024 6:12 PM EDT [facility] Monocytes Absolute 0.97(H) 0.30 - 0.90 10*3/uL LAB HEMATOLOGY METHOD 11/27/2024 6:12 PM EDT [facility] Eosinophils Absolute 0.10 0.00 - 0.50 10*3/uL LAB HEMATOLOGY METHOD 11/27/2024 6:12 PM EDT [facility] Basophils Absolute 0.09 0.00 - 0.10 10*3/uL LAB HEMATOLOGY METHOD 11/27/2024 6:12 PM EDT [facility] Immature Granulocytes Absolute 0.09(H) 0.00 - 0.06 10*3/uL LAB HEMATOLOGY METHOD 11/27/2024 6:12 PM EDT [facility] Blood Venous blood specimen / Unknown Venipuncture / Unknown 11/27/2024 11:51 AM EDT 11/27/2024 11:51 AM EDT Narrative [facility] - 11/27/2024 6:12 PM EDT Therapeutic decision making should be based on absolute values, rather than percentages. us Vikash Taylor MD LAB BLOOD ORDERABLES Final Res ult [facility] [address] [place] [address] * Lipid Profile, Plasma (11/27/2024 11:51 AM EDT) Cholesterol, Plasma 182 <200 mg/dL 11/27/2024 6:24 PM EDT [facility] Comment: Cholesterol Reference Range (age >17 years): Desirable <200 mg/dL Borderline 200 to 239 mg/dL Undesirable >239 mg/dL HDL 84 >=50 mg/dL 11/27/2024 6:24 PM EDT [facility] Comment: HDL Cholesterol Reference Ranges (age >17 years): Female, acceptable > or = 50 mg/dL Male, acceptable > or = 40 mg/dL Triglycerides, Plasma 85 <150 mg/dL 11/27/2024 6:24 PM EDT [facility] Comment: Triglyceride Reference Range (age >17 years): Desirable: <150 mg/dL Borderline high: 150 to 199 mg/dL High: 200 to 499 mg/dL Very high: >499 mg/dL Increased risk of pancreatitis: >1000 mg/dL Cholesterol/HDL Ratio 2 11/27/2024 6:24 PM EDT [facility] LDL, Calculated 83 <100 mg/dL 6:24 PM EDT [facility] Comment: LDL Cholesterol Reference Range (age [...] 12 hours? Yes 11/27/2024 6:24 PM EDT [facility] Blood Venous blood specimen / Unknown Venipuncture / Unknown 11/27/2024 11:51 AM EDT 11/27/2024 11:51 AM EDT us Vikash Taylor MD LAB BLOOD ORDERABLES Final Res ult [facility] [address] [place] [address] * Comprehensive Metabolic Panel, Plasma (11/27/2024 11:51 AM EDT) Glucose, Plasma 77 74 - 99 mg/dL 11/27/2024 6:24 PM EDT [facility] BUN, Plasma 16 8 - 23 mg/dL 11/27/2024 6:24 PM EDT [facility] Creatinine, Plasma 0.72 0.60 - 1.10 mg/dL 11/27/2024 6:24 PM EDT [facility] BUN/Creatinine Ratio 22 11/27/2024 6:24 PM EDT [facility] Sodium, Plasma 143 136 - 145 mmol/L 11/27/2024 6:24 PM EDT [facility] Potassium, Plasma 3.6 3.6 - 4.9 mmol/L 11/27/2024 6:24 PM EDT [facility] Chloride, Plasma 107 97 - 107 mmol/L 11/27/2024 6:24 PM EDT [facility] CO2, Plasma 24 22 - 29 mmol/L 11/27/2024 6:24 PM EDT [facility] Anion Gap 12 6 - 16 mmol/L 11/27/2024 6:24 PM EDT [facility] Total Calcium, Plasma 8.9 8.9 - 10.2 mg/dL 11/27/2024 6:24 PM EDT [facility] Total Protein 6.8 6.3 - 7.9 g/dL 11/27/2024 6:24 PM EDT [facility] Albumin, Plasma 4.4 3.5 - 5.2 g/dL 11/27/2024 6:24 PM EDT [facility] AST, Plasma 26 10 - 35 U/L 11/27/2024 6:24 PM EDT [facility] ALT, Plasma 24 10 - 35 U/L 11/27/2024 6:24 PM EDT [facility] Alkaline Phosphatase, Plasma 55 46 - 142 U/L 11/27/2024 6:24 PM EDT [facility] Total Bilirubin, Plasma 0.6 0.2 - 1.1 mg/dL 11/27/2024 6:24 PM EDT [facility] eGFRcr 90.6 mL/min/1.7 3m*2 11/27/2024 6:24 PM EDT [facility] Comment:Reported eGFRcr in m L/min/1.73m2 is based the CKD-EPI 2020 equation that does not use a race coefficient. Blood Venous blood specimen / Unknown Venipuncture / Unknown 11/27/2024 11:51 AM EDT 11/27/2024 11:51 AM EDT us Vikash Taylor MD LAB BLOOD ORDERABLES Final Res ult [facility] [address] [place] [address] from Last 3 [place] [address] [employer] Care Teams Terminal Gauger Relationship Specialty Start Date End Date Vikash Taylor MD [address] [place] [id number] PCP - General Family Medicine 11/27/24 Hellen Spencer Clinical Expediter Clerk 11/28/24
--- OUTSIDE RECORDS SUMMARY | 2024-12-04 11:04 | XMS_ITS | Data Portability ---
Author Organization YARELIS Soto [place] [facility] Address [address] [facility] [address] [place] [address] Assessment Encounter Date Assessment Date Assessment LastModified by Organization Details LastModified Time 08/02/2024 08/02/2024 Lori Galloway is a 68-year-old woman presenting for follow-up in regards to cervical and lumbar radiculopathy. At the patient's last visit, she underwent a L4-L5 LESI on 03/28/2024 and reports 80% relief for approximately 2 months before pain began to return. She reports worsening lower back pain with extension into the bilateral hips and lateral lower extremities. She reports associated numbness/tinglin g in the bilateral feet primarily when she is in bed at night. The patient also reports worsening neck pain with radiation into the left shoulder and shoulder blade. Pain is worsened with range of motion maneuvers of the neck. Patient underwent a C7-T1 cervical epidural steroid injection in August 2023 and experience 85% reduction in symptoms for over 3 months before symptoms began to return. Cervical MRI demonstrates degenerative changes and severe left neural foraminal narrowing at C4-C5. Lumbar MRI demonstrates degenerative changes with facet arthropathy. There is a disc bulge resulting in bilateral foraminal narrowing at L4-L5. On exam, the patient has pain with lumbar and cervical facet loading. We discussed consideration to repeat the L4-L5 lumbar epidural steroid injection. We also discussed repeating the C7-T1 cervical epidural steroid injection. Risks and benefits of both injections were reviewed, and the patient wishes to proceed. She will be scheduled for the next available appointment for a L4-L5 LESI and a C7-T1 REINALDO and return to clinic in 1 month for further evaluation. [email or web address] Not available 08/02/2024 11:46:16 10/23/2024 10/23/2024 69-year-old female presenting for follow-up for ongoing management of neck and back pain. Patient has chronic axial neck pain with extension into the left shoulder and around the shoulder blade. At her last visit she underwent repeat cervical epidural steroid injection. She reports 100% pain relief for approximately 1 to 1-1/2 months after the injection. She now notes tension through the neck and shoulders with discomfort around the left periscapular region. Cervical MRI demonstrates degenerative changes and severe left neural foraminal narrowing at C4-C5. She also notes axial back pain with radiation into the bilateral hips. She has numbness in her feet. She notes neuropathic pain into the bilateral hips and groin. Pain is worse with prolonged standing and ambulation. Lumbar MRI demonstrates degenerative changes with facet arthropathy. There is a disc bulge resulting in bilateral foraminal narrowing at L4-L5. On exam she has full motor strength throughout. She has there are trigger points noted with muscular spasm. She has a negative Spurling. Did discuss gentle stretching exercises to help with the myofascial component of pain. We also reviewed that in general she can receive up to 4 epidurals a year. Given her propensity to less than 3 months worth of pain relief for each injection I am concerned about ongoing pain. She currently takes gabapentin at night to help with her neuropathic pain. She is unable to take it during the day due to significant sedation. We discussed consideration for transition to Lyrica to help with pain control. Will plan to start Lyrica 50 mg every morning and 100 mg nightly. Side effects were reviewed with her today. I have personally reviewed this patient's GRAYSON report as per [facility] board guidelines and it was found to be appropriate. Patient signed pain management agreement per clinic policy. Urine drug screen was ordered today as per [facility] guidelines. The medication is or continues to be in the best interest of patient centered care. Schedule II, III or IV medications were provided for symptom or disease control. Risks and benefits of such medications were discussed with the patient. Patient will follow-up in 1 month for further evaluation. Not available 10/23/2024 15:34:47 Plan of Treatment Reminders Order Date Submit Date Provider Last Modified By Organization Details Last Modified Time Details Appointments None recorded. Lab None recorded. Referral None recorded. Procedures epidural steroid injection, lumbar (PROC) 2024 025 [email or web address] 1 [facility], [address] [facility], [place] [address], [place], [address], 12:03:35 epidural steroid injection, cervical (PROC) 2024 025 [email or web address] 1 [facility], [address] [facility], [facility] [address], [place], [address], 12:05:47 Surgeries None recorded. Imaging None recorded. Medication Orders pregabalin 50 mg capsule 2024 025 [facility], [address], [address], 15:35:33 Patient TargetsNo targets recorded. Patient Instructions Encounter Date Encounter Id Patient Instructions Last Modified By Organization Details Last Modified Time 08/02/2024 [id number] WRAP-UP Thank you for visiting [facility] today. At today's visit the following were addressed: - L4-L5 LESI - C7-T1 REINALDO - 1 Month follow-up Thank you for visiting the [facility]. - Because of the high volume of calls we receive and the high demand for our clinical services, please allow for 24 hours for us to respond to patient calls. We are generally unable to discuss patient care advice over the telephone. If you are experiencing a medication side effect or complication, you can call and let us know, but we will typically not make a medication substitution or pattern changer and repairer the telephone. - Acute exacerbations of pain and flare ups are quite common in chronic pain states and need to be dealt with as part of the prison management plan. Please make an appointment with us if you wish to discuss a matter in any detail. Should you still need to call, please do so at . For additional information and services provided by our clinic you may visit our [facility] Management Clinic website at: [email or web address] Thank you for choosing [facility]. It was a pleasure to see you in clinic today. Please contact us with any questions or concerns at . [email or web address] Not available 08/02/2024 11:43:42 10/23/2024 [id number] WRAP-UP Thank you for visiting [facility] at [facility] today. At today's visit the following were addressed: Thank you for visiting the [facility]. -Because of the high volume of calls we receive and the high demand for our clinical services, please allow for 24 hours for us to respond to patient calls. We are generally unable to discuss patient care advice over the telephone. If you are experiencing a medication side effect or complication, you can call and let us know, but we will typically not make a medication substitution or pattern changer and repairer the telephone. -Acute exacerbations of pain and flare ups are quite common in chronic pain states and need to be dealt with as part of the development mgr management plan. Please make an appointment with us if you wish to discuss a matter in any detail. Should you still need to call, please do so at . For additional information and services provided by our clinic you may visit our [facility] Management Clinic website at: [email or web address] Thank you for choosing [facility]. It was a pleasure to see you in clinic today. Please contact us with any questions or concerns at . Not available 10/23/2024 15:12:50 Reason for Referral None Reported. Results Created Date Observation Date Name Description Value Unit Range Abnormal Flag Note LastModifiedBy Organization Detail LastModifiedTime 10/24/1910/24/2024 HIGH RISK DRUG PANEL amphetamines NEGATI VE NG/mL <500 normal Not Available [facility] [address] [place], [address], 10/25/2024 20:19:21 10/24/1910/24/2024 HIGH RISK DRUG PANEL barbiturates NEGATI VE NG/mL <300 normal Not Available [facility] [address] [place], [address], 10/25/2024 20:19:21 10/24/1910/2410/24/2024 HIGH RISK DRUG PANEL benzodiazepi stephon NEGATI VE NG/mL <100 normal Not Available [facility] [address] [place] [address], [phone], 10/25/2024 20:19:21 10/24/19 25 10/24/2024 HIGH RISK DRUG PANEL marijuana metabolite NEGATI VE NG/mL <20 normal Not Available [facility] [address] [place] [address], [address], 10/25/2024 20:19:21 10/24/19 25 10/24/2024 HIGH RISK DRUG PANEL cocaine metabolite NEGATI VE NG/mL <150 normal Not Available [facility] [address] [place] [address], [address], 10/25/2024 20:19:21 10/24/19 25 10/24/2024 HIGH RISK DRUG PANEL methadone metabolite NEGATI VE NG/mL <100 normal Not Available [facility] [address] [place] [address], [address], 10/25/2024 20:19:21 10/24/19 25 10/24/2024 HIGH RISK DRUG PANEL opiates NEGATI VE NG/mL <100 normal Not Available [facility] [address] [place] [address], [address], 10/25/2024 20:19:21 10/24/19 25 10/24/2024 HIGH RISK DRUG PANEL oxycodone NEGATI VE NG/mL <100 normal Not Available [facility] [address] [place] [address], [address], 10/25/2024 20:19:21 10/24/19 25 10/24/2024 HIGH RISK DRUG PANEL phencyclidin e NEGATI VE NG/mL <25 normal Not Available [facility] [address] [place] [address], [address], 10/25/2024 20:19:21 10/24/19 25 10/24/2024 HIGH RISK DRUG PANEL creatinine 44.6 mg/dL > or = 20.0 normal Not Available [facility] [address] [place] [address], [address], 10/25/2024 20:19:21 10/24/19 25 10/24/2024 HIGH RISK DRUG PANEL specific gravity 1.007 > or = 1.003 normal Not Available [facility] [address] [place] [address], [address], 10/25/2024 20:19:21 10/24/19 25 10/24/2024 HIGH RISK DRUG PANEL pH 6.3 4.5-9. 0 normal Not Available [facility] [address] [place] [address], [address], 10/25/2024 20:19:21 10/24/19 25 10/24/2024 HIGH RISK DRUG PANEL oxidant NEGATI VE mcg/m L <200 normal Not Available [facility] [address] [place] [address], [address], 10/25/2024 20:19:21 10/24/19 25 10/24/2024 HIGH RISK DRUG PANEL fentanyl NEGATI VE NG/mL <0.5 normal Not Available [facility] [address] [place] [address], [address], 10/25/2024 20:19:21 10/24/19 25 10/25/2024 HIGH RISK DRUG PANEL comment SEE NOTE normal This drug testi ng is for medic al treat ment only. Jovanni sis was perfo rmed as non-f orens ic testi ng and these resul ts shoul d be used only by healt hcare provi ders to rende r diagn osis or treat ment, or to monit or progr ess of medic al condi tions . LDT Notes : Confi rmati on tests were devel oped and their jovanni tical perfo rmanc e alcira cteri stics have been deter mined by [facility]. It has not been clear ed or appro veronique by the FDA. This assay has been valid ated pursu ant to the CLIA regul ation s and is used for clini pete purpo ses. Healt hcare Provi ders needi ng Inter preta tion andree tanfreddy , odalis e conta ct us at 1.877 .40.R XTOX (1.87 7.407 .9869 ) M-F, 8am to 10pm EST Not Available [facility] [address] [place] [address], [phone], 10/25/2024 20:19:21 10/24/19 25 10/25/2024 HIGH RISK DRUG PANEL gabapentin 045208 NG/mL <1000 high Not Available [facility] [address] [place] [address], [address], 10/25/2024 20:19:21 10/24/19 25 10/25/2024 HIGH RISK DRUG PANEL pregabalin, qt ur NEGATI VE NG/mL <1000 normal Not Available [facility] [address] [place] [address], [address], 10/25/2024 20:19:21 10/24/19 25 10/25/2024 HIGH RISK DRUG PANEL desmethyltra madol NEGATI VE NG/mL <100 normal Not Available [facility] [address] [place] [address], [phone], 10/25/2024 20:19:21 10/24/19 25 10/25/2024 HIGH RISK DRUG PANEL tramadol NEGATI VE NG/mL <100 normal Not Available [facility] [address] [place] [address], [phone], 10/25/2024 20:19:21 10/24/19 25 10/25/2024 HIGH RISK DRUG PANEL tapentadol NEGATI VE NG/mL <50 normal Not Available [facility] [address] [place] [address], [phone], 10/25/2024 20:19:21 10/24/19 25 10/25/2024 HIGH RISK DRUG PANEL nortapentado l NEGATI VE NG/mL <50 normal Not Available [facility] [address] [place] [address], [phone], 10/25/2024 20:19:21 10/24/19 25 10/25/2024 HIGH RISK DRUG PANEL heroin metabolite, qt ur NEGATI VE NG/mL <10 normal Not Available [facility] [address] [place] [address], [address], 10/25/2024 20:19:21 10/24/19 25 10/25/2024 HIGH RISK DRUG PANEL ethyl glucuronide NEGATI VE NG/mL <500 normal Not Available [facility] [address] [place] [address], [address], 10/25/2024 20:19:21 10/24/19 25 10/25/2024 HIGH RISK DRUG PANEL ethyl sulfate NEGATI VE NG/mL <100 normal Not Available [facility] [address] [place] [address], [address], 10/25/2024 20:19:21 10/24/19 25 10/25/2024 HIGH RISK DRUG PANEL buprenorphin e NEGATI VE NG/mL <2 normal Not Available [facility] [address] [place] [address], [address], 10/25/2024 20:19:21 10/24/19 25 10/25/2024 HIGH RISK DRUG PANEL norbuprenorp quinton NEGATI VE NG/mL <2 normal Not Available [facility] [address] [place] [address], [address], 10/25/2024 20:19:21 10/24/19 25 10/25/2024 HIGH RISK DRUG PANEL naloxone NEGATI VE NG/mL <2 normal Not Available [facility] [address] [place] [address], [address], 10/25/2024 20:19:21 Result Notes None recorded. Problems No Known Problems Procedures Surgical History Date Name Laterality Status Provider Name and Address Organization Details Recorded Time 08/16/19 25 Cervical Epidural Steroid Injection completed MELINA HONG MD [address] [place] [address], [phone], [facility] 08/14/2024 08:24:08 08/10/19 25 Injection, Interlaminar Epidural Steroid completed MELINA HONG MD [address] [place] [address], [phone], [facility] 08/09/2024 14:44:52 03/28/20 24 Injection, Interlaminar Epidural Steroid completed MELINA HONG MD [address] [place] [address], [phone], [facility] 03/28/2024 10:30:16 08/31/19 24 Cervical Epidural Steroid Injection completed MELINA HONG MD [address] [place] [address], [phone], [facility] 08/31/2023 07:31:25 08/17/19 24 Injection, Interlaminar Epidural Steroid completed MELINA HONG MD [address] [place] [address], [address], [facility] 08/17/2023 07:38:23 Total Hysterectomy completed [facility] 10/23/2024 14:45:06 Imaging Results None recorded. Procedure Notes None recorded. Medical Equipment None Reported. Allergies Allergen ID Allergen Name Allergen Category Reaction Reaction Severity Criticality Documentation Date Start Date Code Code System Note Provider Name and Address Organization Details Recorded Time 407041 Flagyl medicatio n hives Not available Not available 07/05/2023 6 RxNorm Jeana Oswald [facility] 15:25:45 Medications Name Sig Start Date Stop Date Status Note LastModified by Organization Details LastModified Time trazodone 50 mg tablet Take 1 tablet every day by oral route. active Not Available Not Available No t Available levetiracet am 500 mg tablet Take 1 tablet twice a day by oral route. active Not Available Not Available No t Available gabapentin 400 mg capsule Take 1 capsule twice a day by oral route at bedtime. active Not Available Not Available No t Available budesonide DR - ER 3 mg capsule,del ayed,extend ed release Take 3 capsules every day by oral route. 08/02 completed Not Available Not Available Not Available rosuvastati n 20 mg tablet Take 1 tablet every day by oral route. active Not Available Not Available No t Available pregabalin 50 mg capsule Take 1 tablet QAM and 2 tablets QHS 2024 active Not Available Not Available Not Avai lable dicyclomine active Not Available Not A vailable Not Available Prolia active Not Available Not Availa ble Not Available Vitals Date Recorded Body height Body mass index (BMI) Body weight Provider Name and Address Organization Details Last Updated DateTime 08/02/2024 149.86 cm 20.4 kg/m2 69037.83 g [facility] 08/02/2024 11:27:37 Date Recorded Body height Body mass index (BMI) Body weight Oxygen saturation Oxygen saturation in Arterial blood by Pulse oximetry Heart rate Systolic And Diastolic Provider Name and Address Organization Details Last Updated DateTime 149.86 cm 20.3 kg/m2 27484.0 4 g 97 % 97 % 90 /min 100/60 mm[Hg] [facility] 14:48:14 Social History Question Answer Notes LastModified by [employer] Details LastModified Time Tobacco Smoking Status [facility] 15:28:44 What Was The Date Of Your Most Recent Tobacco Screening? 10/23/2024 ruth Information not available 10/23/2024 Sex: Female Functional Status Question Answer Note LastModified by [employer] Details LastModified Time What is your level of alcohol consumption? Occasional [email or web address] Information not available 07/05/2023 Mental Status None recorded. Family History Nothing Reported. Medical History Condition Response Kidney Stones N Blood Transfusion N Emphysema N Colon/Rectal Disorders Y Sexually Transmitted Disease N COPD N Depression N Glaucoma N Pneumonia N Measles N Attempted Suicide N Varicose Veins N Anxiety Disorder N Hearing Loss N Arthritis Y Blood Clot N Cancer N Stroke N Radiation Therapy N Blood Thinners N High Cholesterol Y Neurologic Disorder N Liver Disease N Headaches N Fibromyalgia N Endocrine Disorder N Kidney Disease N Heart Problems N Skin Problems N Meningitis N Ulcers N Heart Attack (RI) N Diabetes N Rheumatic Fever N Bleeding Disorder N Tuberculosis N AIDS/HIV N Asthma N Epilepsy/Seizures Y Sleep Apnea N Thyroid Disorder N Hepatitis N Hypertension N Osteoporosis Y Gynecological HistoryNo gynecological history recorded. Obstetrics History GPAL:G 0 P 0 0 0 0 Past Encounters Encounter ID Performer Location Encounter Start Date Encounter Closed Date Diagnosis/Indication Diagnosis SNOMED-CT Code Diagnosis ICD10 Code Diagnosis Note [id number] MELINA HONG MD [facility] [address] [place] [address] 1 07/05/2023 14:47:40 07/05/2023 16:01:19 Lumbar radiculopathy 232646037 M54.16 Degenerati on of lumbar intervertebral disc 51613450 M51.36 Cervical radiculopathy 14945879 M54.12 [id number] MELINA HONG MD [facility] [address] [place] [address] 1 08/08/2023 15:32:48 08/08/2023 16:18:58 Lumbar radiculopathy 991854125 M54.16 Degenerati on of lumbar intervertebral disc 99117406 M51.36 Cervical radiculopathy 71782608 M54.12 [id number] MELINA HONG MD [facility] [address] [place] [address] 1 08/17/2023 10:07:43 08/17/2023 12:58:40 Lumbar radiculopathy 332323978 M54.16 [id number] MELINA HONG MD [facility] [address] [place] [address] 1 08/31/2023 10:19:41 09/02/2023 13:17:10 Cervical radiculopathy 58584030 M54.12 [id number] GIANLUCA GONZALEZ PA-C [facility] [address] [place] [address] 1 09/30/2023 09:46:01 09/30/2023 10:13:31 Lumbar radiculopathy 444074233 M54.16 Cervical radiculopathy 88193635 M54.12 Degenerati on of lumbar intervertebral disc 76441913 M51.36 Degenerati on of cervical intervertebral disc 76899047 M50.30 [id number] MELINA HONG MD [facility] [address] [place] [address] 1 03/28/2024 09:53:32 04/03/2024 15:42:31 Lumbar radiculopathy 894073562 M54.16 [id number] GIANLUCA GONZALEZ PA-C [facility] [address] [place] [address] 1 08/02/2024 11:22:50 08/02/2024 11:42:31 Lumbar radiculopathy 896425581 M54.16 Cervical radiculopathy 10275472 M54.12 Degenerati on of lumbar intervertebral disc 68182304 M51.362 Degenerati on of cervical intervertebral disc 10637816 M50.30 [id number] MELINA HONG MD [facility] [address] [place] [address] 1 08/09/2024 14:54:43 08/12/2024 02:17:32 Lumbar radiculopathy 614891416 M54.16 [id number] MELINA HONG MD [facility] [address] [place] [address] 1 08/15/2024 09:15:58 08/17/2024 16:16:23 Cervical radiculopathy 66266114 M54.12 [id number] MELINA HONG MD [facility] [address] [place] [address] 1 10/23/2024 14:16:30 10/23/2024 15:24:49 Lumbar radiculopathy 382851843 M54.16 Cervical radiculopathy 70459830 M54.12 Degenerati on of lumbar intervertebral disc 88500770 M51.362 Degenerati on of cervical intervertebral disc 83302238 M50.30 Health Concerns Section Related Observation LastModified by Organization Detai ls LastModified Time None Recorded Concern Status LastModified by Organization Details LastModified Time None Recorded Advance Directives Directive None Recorded Payers Insurance Date Sequence Insurance Name Policy Number Policy Worrell Covered Member ID Worrell Member ID Guarantor Name 10/20/2024 1 [place] Lori Galloway [id number] Lori Galloway 08/10/2024 2 [employer] (MEDICARE SUPPLEMENT) Lori Galloway [id number] Lori Galloway 10/27/2024 2 [employer] (MEDICARE SUPPLEMENT) Lori Galloway [id number] Lori Galloway Notes Date Note Type Note Provider Name and Address Organization Details Recorded Time 08/02/2024 text/html Lori Galloway i s a 68-year-old female with a history of cervical and lumbar radiculopathy presenting to the clinic today for a follow-up. Patient underwent L4-L5 LESI on 03/28/24. Patient reports 80% relief for two months. She reports radiating pain into the bilateral hip and legs. She reports return of tingling in toes. Patient's main complaint today is neck pain pain with radiation into left arm shoulder. Pain today is 3/10 but increases to 7/10. GIANLUCA GONZALEZ PA-C [address] [place] [address], [phone], [facility] 08/02/2024 11:47:52 10/23/2024 text/html Injection follow upReported bypatient.Location: neck Most recent procedures:lumbar LAYLA (L4-L5 LESI 08/09/24); cervical LAYLA (C7-T1 Cervical LAYLA); date: (08/15/24) % of reliefpain relief % (100 neck 80 low back) Duration of relief:ongoing (0%) Severity:same (hips); worsening (neck); current pain 0/10; average pain 6-7/10 Woundinjection site healed well; no fever; no bleeding Lori Galloway is a 69-year-old woman presenting for follow-up in regards to cervical and lumbar radiculopathy. MELINA HONG MD [address] [place] [address], [phone], [facility] 10/23/2024 15:35:29 OBGyn Episode No OBEpisode recorded.
--- OUTSIDE RECORDS SUMMARY | 2024-12-04 11:04 | XMS_ITS | Continuity of Care Document ---
Author Organization [facility], PAIN MEDICINE [address] [place] [address] Assessment Encounter Date Assessment Date Assessment LastModified by Organization Details LastModified Time 10/23/2024 10/23/2024 69-year-old female presenting for follow-up [...] reviewed this patient's GRAYSON report as per [facility] guidelines and it was found to be appropriate. Patient signed pain management agreement per clinic policy. Urine drug screen was ordered today as per [facility] guidelines. The medication is or continues to [...] Orders pregabalin 50 mg capsule 2024 025 [facility] [phone], [address], 15:35:33 Patient TargetsNo targets recorded. Patient Instructions Encounter Date Encounter Id Patient Instructions Last Modified By Organization Details Last Modified Time 10/23/2024 [id number] [id number] Thank you for visiting [facility] at [facility] today. At today's visit the following were addressed: Thank you for visiting the [facility]. -Because of the high volume [...] typically not make a medication substitution or blade changer the telephone. 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 Please make an appointment with us if you wish to discuss a matter in any detail. Should you still need to call, please do so at . For additional information and services provided by our clinic you may visit our Pain Management Clinic website at: [email or web address] Thank you for choosing [facility]. It was a pleasure to see you in clinic today. Please contact us with any questions or concerns at . Not available 10/23/2024 15:12:50 Reason for Referral None Reported. Results Created Date Observation Date Name Description Value Unit Range Abnormal Flag Note LastModifiedBy Organization Detail LastModifiedTime 10/24/1910/24/2024 HIGH RISK DRUG PANEL amphetamines NEGATI VE NG/mL <500 normal Not Available [facility] [address] [place] [address], [phone], 10/25/2024 20:19:21 10/24/19 25 10/24/2024 HIGH RISK DRUG PANEL barbiturates NEGATI VE NG/mL <300 normal Not Available [facility] [address] [place] [address], [address], 10/25/2024 20:19:21 10/24/19 25 10/24/2024 HIGH RISK DRUG PANEL benzodiazepi stephon NEGATI VE NG/mL <100 normal Not Available [facility] [address] [place] [address], [phone], 10/25/2024 20:19:21 10/24/19 25 10/24/2024 HIGH RISK DRUG PANEL marijuana metabolite NEGATI VE NG/mL <20 normal Not Available [facility] [address] [place] [address], [address], 10/25/2024 20:19:21 10/24/19 25 10/24/2024 HIGH RISK DRUG PANEL cocaine metabolite NEGATI VE NG/mL <150 normal Not Available [facility] [address] [place] [address], [phone], 10/25/2024 20:19:21 10/24/19 25 10/24/2024 HIGH RISK DRUG PANEL methadone metabolite NEGATI VE NG/mL <100 normal Not Available [facility] [address] [place] [address], [address], 10/25/2024 20:19:21 10/24/19 25 10/24/2024 HIGH RISK DRUG PANEL opiates NEGATI VE NG/mL <100 normal Not Available [facility] [address] [place] [address], [address], 10/25/2024 20:19:21 10/24/19 25 10/24/2024 HIGH RISK DRUG PANEL oxycodone NEGATI VE NG/mL <100 normal Not Available [facility] [address] [place] [address], [address], 10/25/2024 20:19:21 10/24/19 25 10/24/2024 HIGH RISK DRUG PANEL phencyclidin e NEGATI VE NG/mL <25 normal Not Available [facility] [address] [place] [address], [address], 10/25/2024 20:19:21 10/24/19 25 10/24/2024 HIGH RISK DRUG PANEL creatinine 44.6 mg/dL > or = 20.0 normal Not Available [facility] [address] [place] [address], [address], 10/25/2024 20:19:21 10/24/19 25 10/24/2024 HIGH RISK DRUG PANEL specific gravity 1.007 > or = 1.003 normal Not Available [facility] [address] [place] [address], [address], 10/25/2024 20:19:21 10/24/19 25 10/24/2024 HIGH RISK DRUG PANEL pH 6.3 4.5-9. 0 normal Not Available [facility] [address] [place] [address], [address], 10/25/2024 20:19:21 10/24/19 25 10/24/2024 HIGH RISK DRUG PANEL oxidant NEGATI VE mcg/m L <200 normal Not Available [facility] [address] [place] [address], [address], 10/25/2024 20:19:21 10/24/19 25 10/24/2024 HIGH RISK DRUG PANEL fentanyl NEGATI VE NG/mL <0.5 normal Not Available [facility] [address] [place], [address], 10/25/2024 20:19:21 10/24/19 25 10/25/2024 HIGH RISK [...] cteri stics have been deter mined by [facility]. It has not been clear ed or appro veronique by the FDA. This assay has been valid ated pursu ant to the CLIA regul ation s and is used for clini pete purpo ses. Healt hcare Provi ders needi ng Inter preta tion andree tance , pleas e conta ct us at 1.877 .40.R XTOX (1.87 7.407 .9869 ) M-F, 8am to 10pm EST Not Available [facility] [address] [place], [address], 10/25/2024 20:19:21 10/24/19 25 10/25/2024 HIGH RISK DRUG PANEL gabapentin 430752 NG/mL <1000 high Not Available [facility] [address] [place], [address], 10/25/2024 20:19:21 10/24/19 25 10/25/2024 HIGH RISK DRUG PANEL pregabalin, qt ur NEGATI VE NG/mL <1000 normal Not Available [facility] [address] [place], [address], 10/25/2024 20:19:21 10/24/19 25 10/25/2024 HIGH RISK DRUG PANEL desmethyltra madol NEGATI VE NG/mL <100 normal Not Available [facility] [address] [place] [address], [address], 10/25/2024 20:19:21 10/24/19 25 10/25/2024 HIGH RISK DRUG PANEL tramadol NEGATI VE NG/mL <100 normal Not Available [facility] [address] [place] [address], [address], 10/25/2024 20:19:21 10/24/19 25 10/25/2024 HIGH RISK DRUG PANEL tapentadol NEGATI VE NG/mL <50 normal Not Available [facility] [address] [place] [address], [address], 10/25/2024 20:19:21 10/24/19 25 10/25/2024 HIGH RISK DRUG PANEL nortapentado l NEGATI VE NG/mL <50 normal Not Available [facility] [address] [place] [address], [address], 10/25/2024 20:19:21 10/24/19 25 10/25/2024 HIGH RISK DRUG PANEL heroin metabolite, qt ur NEGATI VE NG/mL <10 normal Not Available [facility] [address] [place] [address], [address], 10/25/2024 20:19:21 10/24/19 25 10/25/2024 HIGH RISK DRUG PANEL ethyl glucuronide NEGATI VE NG/mL <500 normal Not Available [facility] [address] [place] [address], [address], 10/25/2024 20:19:21 10/24/19 25 10/25/2024 HIGH RISK DRUG PANEL ethyl sulfate NEGATI VE NG/mL <100 normal Not Available [facility] [address] [place] [address], [address], 10/25/2024 20:19:21 10/24/19 25 10/25/2024 HIGH RISK DRUG PANEL buprenorphin e NEGATI VE NG/mL <2 normal Not Available [facility] [address] [place], [address], 10/25/2024 20:19:21 10/24/19 25 10/25/2024 HIGH RISK DRUG PANEL norbuprenorp quinton NEGATI VE NG/mL <2 normal Not Available [facility] [address] [place], [address], 10/25/2024 20:19:21 10/24/19 25 10/25/2024 HIGH RISK DRUG PANEL naloxone NEGATI VE NG/mL <2 normal Not Available [facility] [address] [place], [address], 10/25/2024 20:19:21 Result Notes None recorded. Problems No Known Problems Procedures Surgical History Date Name Laterality Status Provider Name and Address Organization Details Recorded Time 08/16/19 25 Cervical Epidural Steroid Injection completed MELINA HONG MD [address] [place] [address], [address], [facility] 08/14/2024 08:24:08 08/10/19 25 Injection, Interlaminar Epidural Steroid completed MELINA HONG MD [address] [place] [address], [address], [facility] 08/09/2024 14:44:52 03/28/20 24 Injection, Interlaminar Epidural Steroid completed MELINA HONG MD [address] [place] [address], [address], [facility] 03/28/2024 10:30:16 08/31/19 24 Cervical Epidural Steroid Injection completed MELINA OHNG MD [address] [place] [address], [address], [facility] 08/31/2023 07:31:25 08/17/19 24 Injection, Interlaminar Epidural Steroid completed MELINA HONG MD [address] [place] [address], [address], [facility] 08/17/2023 07:38:23 Total Hysterectomy completed Masoka [facility] 10/23/2024 14:45:06 Imaging Results None recorded. Procedure Notes None recorded. Medical Equipment None Reported. Allergies Allergen ID Allergen Name Allergen Category Reaction Reaction Severity Criticality Documentation Date Start Date Code Code System Note Provider Name and Address Organization Details Recorded Time 669179 Flagyl medicatio n hives Not available Not available 07/05/202388267 6 RxNorm regine Oswald [facility] 15:25:45 Medications Name Sig Start Date Stop [...] and Address Organization Details Last Updated DateTime 5 149.86 cm 20.3 kg/m2 70456.0 4 g 97 % 97 % 90 /min 100/60 mm[Hg] Kvng Marques [facility] 5 14:48:14 Social History Question Answer Notes LastModified by Organizat ion Details LastModified Time Tobacco Smoking Status Former Smoker Jeana Oswald [facility] 07/05/2023 15:28:44 What Was The Date Of Your Most Recent Tobacco Screening? 10/23/2024 ruth Information not available 10/23/2024 Sex: Female Functional Status Question Answer Note LastModified by Organizat ion Details LastModified Time What is your level of alcohol consumption? Occasional jearlywine Information not available 07/05/2023 Mental Status None [...] N Meningitis N Ulcers N Heart Attack (ME) N Diabetes N Rheumatic Fever N Bleeding [...] SNOMED-CT Code Diagnosis ICD10 Code Diagnosis Note [id number] MELINA HONG MD PAIN MEDICINE [facility] [address] [address] 10/23/2024 14:16:30 10/23/2024 15:24:49 Lumbar radiculopathy 451188155 M54.16 Cervical radiculopathy 11230202 M54.12 Degenerati on of lumbar intervertebral disc 60561580 M51.362 Degenerati on of cervical intervertebral disc 63253881 M50.30 Health Concerns Section Related Observation LastModified by Organization Detai ls LastModified Time None Recorded Concern Status LastModified by Organization Details LastModified Time None Recorded Payers Encounter Date Sequence Insurance Name Policy Number Policy Worrell Covered Member ID Worrell Member ID Guarantor Name 10/23/2024 1 [place] Lori Pina [id number] Lori Galloway 10/23/2024 2 [employer] [facility] (MEDICARE SUPPLEMENT) Lori Galloway [id number] Lori Galloway Notes Date Note Type Note Provider Name and Address Organization Details Recorded Time 10/23/2024 text/html Injection follow upReported bypatient.Locatio n:neck Most recent procedures:lumbar LAYLA (L4-L5 LESI 08/09/24); [...] cervical and lumbar radiculopathy. MELINA HONG MD [address] [place] [address], [address], [facility] 10/23/2024 15:35:29 OBGyn Episode No OBEpisode recorded.
--- OUTSIDE RECORDS SUMMARY | 2024-12-04 11:04 | XMS_ITS | Patient Health Record ---
Author Organization [facility] Address [address] [facility] [address] [place] [address] Care Team Providers Care Superintendent Factory Name Role Phone RAJWINDER FITCH [phone] Allergies Allergen (clinical drug ingredient) Drug/Non Drug Allergy documented on EMR Reaction Allergy Type Onset Date Status metronidazole flagyl Unknown Drug Allergy Act norah Reason For Referral No Information Medications Medication SIG (Take, Route, Frequency, Duration) Notes Start Date End Date Status Simvastatin 40 TAKE ONE TABLET BY M OUTH IN THE EVENING EVERY DAY FOR CHOLESTEROL; Duration: 90 Active Fish Oil 1200 MG as directed Orally Active Simvastatin 40 MG 1 tablet every eveni ng Orally Once a day 07/02/2011 Active Slo-Niacin 500 MG one Orally daily Active Calcium + D 600-200 MG-UNIT 1 tablet Ora lly bid; Duration: 30 day(s) Active Dilantin 100 MG 4 Orally daily; Dura tion: 90 Active Phenytoin Sodium Extended 100 MG TAKE FOUR CAPSULES BY MOUTH EVERY DAY; Duration: 90 Active Problems Problem Type SNOMED Code ICD Code Onset Dates Problem Status W/U Status Risk Notes Problem Mixed hyperlipidemia (515728948) Combined hyperlipidemia (272.4) Active confirmed Statin use, very good HDL Problem Seizure disorder (377249051) CONVULSIONS NEC (780.39) Active confirmed Controlled with Dilantin, partial temporal lobe seizures Problem Long-term current use of drug therapy (989765161) snf use of medications (V58.69) Active confirmed Plan Of Treatment No Information Insurance Providers Payer Name Payer Address Payer Phone Subscriber Number Group Number Insured Name Patient Relationship to Insured Coverage Start Date Coverage End Date [place] [address] [place] [address] [id number] KEIRYPA Patino Self - patient is the insured Medical (General) History Surgical History Surgery Date(Month/Year) colonoscopy- negative according to the p atient 2008 urethral dilatations Lasik surgery to her eyes tonsillectomy ALEXY- BSO 1998
--- OUTSIDE RECORDS SUMMARY | 2024-12-04 11:04 | XMS_ITS | Encounter Summary ---
Author Organization Healthcare Address [address] [place] [address] Care Team Providers Care Mop Man Name Role Phone Vikash Taylor MD Primary Care Provider [phone] Hellen Spencer Unavailable Unavailable Encounter Details Date Type Department Care Team (Late st Contact Info) Description 11/29/2024 Results Follow-Up [facility] [address] [place] [address] Vikash Taylor MD [address] [place] [address] Social History Tobacco Use Types Packs/Day Years [...] any time in the past 12 m [facility], were you homeless or living in a prison (including now)? No 11/24/2024 Utilities Answer Date [...] Description 12/18/2024 12:20 PM EDT Office Visit [facility] [address] [place] [address] Vikash Taylor MD [address] [place] [address] 01/18/2025 10:00 AM EDT Office Visit [facility] [address], [address] [place] [address] Karen Pearce PA [address] [place] [address] documented as of this encounter [...] documented as of this encounter Care Teams Mop Man Relationship Specialty Start Date End Date Vikash Taylor MD [address] [place] [address] PCP - General Family Medicine 11/27/24 Hellen Spencer Clinical Appliance Line Assembler 11/28/24 documented as of this encounter
--- OUTSIDE RECORDS SUMMARY | 2024-12-04 11:04 | XMS_ITS | Patient Health Record ---
Author Organization [facility] Address [address] [facility] [address] [place] [address] Care Team Providers Care Marine Steamfitter Name Role Phone David VALLE, Cipriano Primary Care Provider Unavail able DEVON COBBLER APPRENTICE-C, MALI Unavailable [phone] Allergies Allergen (clinical drug ingredient) Drug/Non Drug Allergy documented on EMR Reaction Allergy Type Onset Date Status metronidazole Flagyl Unknown Drug Allergy Act norah Reason For Referral No Information Medications Medication SIG (Take, Route, Frequency, Duration) Notes Start Date End Date Status Calcium Active multivitamin Active pravastatin Active phenytoin Active Plan Of Treatment No Information Insurance Providers Payer Name Payer Address Payer Phone Subscriber Number Group Number Insured Name Patient Relationship to Insured Coverage Start Date Coverage End Date [facility] [address] [place], [place] [phone] [id number] KEIRYJENNY PatinoPA Self - patient is the insured Medical (General) History Medical History History ICD Code seizures
[2024-12-04] MEDS: DENOSUMAB 60 MG/ML SYRINGE SUBCUT (11:12)
[2024-12-04 11:13] VITALS: BP 104/52; PULSE 70; RESP 18; O2SAT 99
== END 2024-12-04 11:13 | disposition home or self-care (01) ==
LOC: INF 10:57
PROVIDERS: PCP Family Medicine; Visit Provider Family Medicine
DX: M81.0 Age-related osteoporosis without current pathological fracture (principal)
CPT/HCPCS: 96372; J0897